=== PATIENT | female | born 1965 | race Two or more races ===

== ENCOUNTER 2018-07-11 19:04 | Inpatient (IN) | payer OTHER ==
[~2018-07-11] VITALS: Ht 167.6 cm; Wt 78.0 kg
[~2018-07-11 19:04] MED LIST changes: -ASPI81CH PO; -ATOR80 PO; -CARV3.125 PO; -CHOL10002 PO; -CLOP75 PO; -GAVILAX17 GM PO; -Synthroid75 MCG PO
[2018-07-11] MEDS ORDERED: CHOL10002 PO (19:13)
[2018-07-11] MEDS ORDERED: Synthroid75 MCG PO (19:13)
[2018-07-11 19:58] LABS: International Normalized Ratio 0.96; Prothrombin Time Results 10.2 Sec (9.7-11.5)
--- NOTE | 2018-07-11 22:45 | NUR ---
ARRIVAL TO THE FLOOR: PATIENT ARRIVED TO FLOOR VIA GURNEY AT 3. SHE TRANSFERED INDEPENDANT TO THE BED. IV HEPARIN DRIP INFUSING AT 17.4ML/HR, VERIFIED WITH ZEHRA LOPEZ. PT IS AOX3, COOPERATIVE AND PLEASANT. WILL HAVE HER TWO SONS SHOW UP LATER. STATES THAT HER PAIN STARTED YESTERDAY AROUND 11PM, WITH DISCOMFORT IN THE CHEST, SHE GOT UP AND WENT TO WORK THIS MORNING DURING THE DAY BOTH OF HER SHOULDERS BECAME HEAVY. SHE FINISHED OUT HER SHIFT AND THEN WENT TO THE URGENT CARE, HER TROPONIN THERE WAS 1.23, THEY SENT HER IMMEDIATLY OVER TO THE ER. IN ER HER TROPONIN WAS 1.4, NEGATIVE FOR PE. SHE DENIES ANY CHEST PAIN AT THIS TIME, JUST SLIGHT PRESSURE MID CHEST NO NUMBNESS OR TINGLING, STATES IT IS IMPROVING, NO INCREASE IN PAIN WITH MOVEMENT. GOT SETTLED IN THE ROOM, CALL LIGHT IN REACH.
[2018-07-12 01:41] LABS: Anion Gap 8 mmol/L (6-16); Blood Urea Nitrogen 12 mg/dL (8-24); CHOL/HDL RATIO 2.8; CO2, Blood 27 mmol/L (21-32); Calcium, Blood 8.7 mg/dL (8.5-10.1); Chloride, Blood 105 mmol/L (98-108); Cholesterol 197 mg/dL (50-200); Creatinine, Blood 0.55 mg/dL (0.40-1.00); Glomerular Filtration Rate >60 (60-); Glucose, Blood 89 mg/dL (70-99); HDL Cholesterol 71 mg/dL (>39); LDL/HDL RATIO 1.5; Low Density Lipoprotein Chol 108 mg/dL (0-110); Potassium, Blood 3.7 mmol/L (3.5-5.5); Sodium, Blood 140 mmol/L (136-145); Triglycerides 91 mg/dL (30-160); Very Low Density Lipoprot Chol 18 mg/dL (6-32)
--- NOTE | 2018-07-12 02:46 | NUR ---
CRITICAL LAB: CRITICAL TROPONIN LEVEL OF 3.04 RECEIVED AT 0215. CALLED TELEMETRY THEY SHOWED SINIUS RHYTHEM OF 60'S OCCATIONAL BRADYCARDIA OF 57-60. BP 94/64, HR 69, SATS 94%, TEMP 98.2, 12 RESP. PATIENT DENIED ANY CHEST PAIN, DISCOMFORT, PRESSURE, SOB OR ANY OTHER SYMPTOMS. INFORMED CUSTOM WOOD STAIR BUILDER, ATTEMPTED SEVERAL CALLS TO MD BUT PHONE BUSY. HAD CUSTOM WOOD STAIR BUILDER CALL SUPERVISORY WHICH WAS ABLE TO GET AHOLD OF MD. CALLED MD INFORMED OF CRITICAL LEVEL. HE STATES HE WILL HAVE A REPEAT TROPONIN FOR 7 AM. NO OTHER ORDERS TO NOTE. INFORMED CUSTOM WOOD STAIR BUILDER.
--- NOTE | 2018-07-12 05:35 | NUR ---
SHIFT SUMMARY: PATIENT ARRIVED TO FLOOR AROUND 2132 VIA GURNEY, SHE TRANSFERRED SELF INDEPENDANT TO BED. CHANGED INTO [employer]. DENIED HAVING ANY PAIN OTHER THEN PRESSURE IN CHEST, THAT WAS IMPROVING WITH HEPARIN DRIP INFUSING INTO 18G RIGHT AC. INFUSION WAS GOOD THROUGHOUT THE NIGHT. tROPONIN ON ARRIVAL WAS 1.4. AROUND 214 RECEIVED CRITICAL TROPONIN LEVEL OF 3.04, PATIENT ASYMPTOMATIC, VS WNL WITH A SLIGHT DROP IN BP. HAD COREG IN ER PRIOR TO ADMIT TO FLOOR. TELEMETRY REPORTED SR IN 60'S. NOTIFIED AND ONLY A REPEAT TROPONIN WAS ORDERED. MONITORED PATIENT THROUGHOUT THE NIGHT WITH NO ACUTE CHANGES, REMAINED SLEEPING OFF AND ON WITH NO FURTHER CHEST PAIN. HER TWO BOYS ARE IN ROOM WITH HER SLEEPING. WILL REPORT TO ONCOMING SHIFT.
--- NOTE | 2018-07-12 11:45 | NUR ---
Spiritual care visit conducted. Patient is lying in bed and alert. Patient shares about her current condition and about her upcoming prodedure. Patient openly speaks of her family (6 children), her shannon (attends [employer]) and her many changes in location over the past several years. Patient also admits that she is quite nerveous about her surgery and about what the surgeon may find. I listen empathically, provide emotional support and provide pre-surgery prayer. Patient responds well and shows signs of reduced stress
--- NOTE | 2018-07-12 11:55 | NUR ---
PATIENT COMPLAINING OF A LEFT SIDE SHOOTING BACK PAIN. MAY BE RELATED TO BED. UP WALKING MALDONADO STATES THE PAIN HAS GONE AWAY. NO CHANGED TO TELE MONITOR. WILL CONTINUE TO MONITOR.
--- NOTE | 2018-07-12 11:58 | NUR ---
Advance Directive Education conducted. Patient is very interested in advance directive planning. We talk at length about it. I give patient the Advance Directive booklet and go through it section by section and discuss the process of filing the forms. Patient demonstrates a clear understanding and states that she will go over the information with her son and her sister.
--- NOTE | 2018-07-12 17:15 | NUR ---
ASSUMED CARE PT CAME FROM HEART CENTER. VS STABLE. O2 SATS REMAIN ABOVE 90% ON RA. PT DENIES ANY CP. HR 50-60'S SINUS. RIGHT RADIAL SITE FREE FROM ANY BRUISING, HEMATOMA, OR BLEEDING. RIGHT GROIN SITE WITH ANGIOSEAL IN PLACE FREE FROM BLEEDING, HEMATOMA, OR BRUISING. PT LYING FLAT. WILL CONTINUE TO MONITOR CLOSELY.
--- NOTE | 2018-07-12 19:00 | NUR ---
REPORT GIVEN TO SERVICE CONSULTANT RN.
[2018-07-13 03:50] LABS: Hemoglobin 13.3 g/dL (11.5-16.0); Mean Corpuscular HGB Conc 33.3 g/dL (31.5-36.5); Mean Corpuscular Volume 90 fL (80-100); Mean Platelet Volume 8.6 fL (9.1-12.4); Platelet Count 261 K/mm3 (150-400); RDW Coefficient Variation 12.3 % (11.7-14.2); RDW Standard Deviation 39.9 fL (35.1-46.3); Red Blood Cell Count 4.44 M/mm3 (3.80-5.20); White Blood Cell Count 6.64 K/mm3 (4.00-11.30)
[2018-07-13 04:07] LABS: Albumin, Blood 3.2 g/dL (3.4-5.0); Anion Gap 7 mmol/L (6-16); Blood Urea Nitrogen 15 mg/dL (8-24); Bun/Creatinine Ratio 25.7 (12.0-20.0); CO2, Blood 26 mmol/L (21-32); Calcium, Blood 8.5 mg/dL (8.5-10.1); Chloride, Blood 106 mmol/L (98-108); Creatinine, Blood 0.58 mg/dL (0.40-1.00); Glomerular Filtration Rate >60 (60-); Glucose, Blood 85 mg/dL (70-99); Phosphorus, Blood 3.9 mg/dL (2.5-4.9); Sodium, Blood 139 mmol/L (136-145)
--- NOTE | 2018-07-13 05:47 | NUR ---
Shift Summary No changes this shift. VSS. No events on tele. Pt without complaints of chest pain or pressure. pt denies shortness of breath. R radial free of hematoma, swelling, bleed, tenderness. Site fully deflated and TR band removed. Tegaderm in place and pt remains with armboard. R Groin soft, non tender, no hematoma or bleed present. Pt able to ambulate independantly to bathroom. Pt calls appropriately, remains alert and oriented, call light in reach. Will continue to monitor and update as needed.
[2018-07-13] MEDS ORDERED: CARV3.125 PO (11:09)
[2018-07-13] MEDS ORDERED: ATOR80 PO (11:09)
[2018-07-13] MEDS ORDERED: ASPI81CH PO (11:09)
[2018-07-13] MEDS ORDERED: GAVILAX17 GM PO (11:10)
[2018-07-13] MEDS ORDERED: CLOP75 PO (11:10)
--- NOTE | 2018-07-13 11:53 | NUR ---
Patient is lying in bed and alert. Patient states that she is going home today. We discuss her resources and coping skills. Patient has a great family support network and leans heavily on her shannon. I listened empathically and provided prayer. Patient responded well and voiced appreciation for the visit.
--- NOTE | 2018-07-13 13:38 | NUR ---
PT ALERT AND ORIENTED. VS STABLE. FEMORAL SITE AND RADIAL SITE BOTH FREE FROM ANY HEMATOMA, BRUISING, OR BLEEDING. DISCHARGE INSTRUCTIONS PROVIDED. IV REMOVED. STENT INFORMATION AND RESTRCITIONS GIVEN TO PT. PT TAKEN OUT BY WHEELCHAIR WITH FAMILY.
== END 2018-07-13 13:19 | disposition home or self-care (01) | DRG 247 ==
LOC: ER 19:04 → MEDS 20:55 → PCU 07-12 16:45
PROVIDERS: Emergency Medicine; Internal Medicine; ADMIT Hospitalist
PROC: 4A023N7 Measurement of Cardiac Sampling and Pressure, Left Heart, Percutaneous Approach (ICD-10-PCS; principal; 2018-07-12)
PROC: 027034Z Dilation of Coronary Artery, One Artery with Drug-eluting Intraluminal Device, Percutaneous Approach (ICD-10-PCS; 2018-07-12)
PROC: B201YZZ Plain Radiography of Multiple Coronary Arteries using Other Contrast (ICD-10-PCS; 2018-07-12)
DX: I21.4 Non-ST elevation (NSTEMI) myocardial infarction (principal); I10 Essential (primary) hypertension; E03.9 Hypothyroidism, unspecified; E66.3 Overweight; Z68.28 Body mass index [BMI] 28.0-28.9, adult
CPT/HCPCS: 36415; 71260; 76937; 80048; 80053; 80061; 80069; 83036; 84484; 85025; 85027; 85347; 85379; 85610; 85730; 93005; 93010; 93306; 93458; 93926; 96365-59; 99152; 99153; 99283-25; 99285-25; A9270; C1725; C1760; C1769; C1874; C1887; C1894; C9600; J1644; J2250; J3010; J3246; J7030; Q9967

== ENCOUNTER → 2018-07-11 | Outpatient (CLI) | payer OTHER ==
[~2018-07-11] MED LIST: ASPI81CH PO; ASPI81EC PO; ATEN25 PO; ATOR80 PO; BUSP5 PO; CARV3.125 PO; CHOL10002 PO; CLOP75 PO; GAVILAX17 GM PO; HYDCHL25 PO; LEVSOD25 PO; LEVSOD75 PO; LISI5 PO; Mucinex600 MG PO; PROM25 PO; Pseudoephedrine30 MG PO; Synthroid75 MCG PO
[2018-07-11 18:30] LABS: BASOPHILS ABSOLUTE AUTO 0.02 K/mm3 (0.00-0.23); BASOPHILS PERCENT AUTO 0 % (0-2); EOSINOPHILS ABSOLUTE AUTO 0.06 K/mm3 (0.00-0.68); EOSINOPHILS PERCENT AUTO 1 % (0-6); Hematocrit 39.6 % (33.0-51.0); Hemoglobin 13.7 g/dL (11.5-16.0); IMMATURE GRAN ABSOLUTE AUTO 0.02 K/mm3 (0.00-0.10); IMMATURE GRAN PERCENT AUTO 0 % (0-1); LYMPHOCYTES ABSOLUTE AUTO 2.14 K/mm3 (0.84-5.20); LYMPHOCYTES PERCENT AUTO 29 % (21-46); MONOCYTES PERCENT AUTO 5 % (4-13); Mean Corpuscular HGB 30.6 pg (26.0-34.0); Mean Corpuscular HGB Conc 34.6 g/dL (31.5-36.5); Mean Corpuscular Volume 88 fL (80-100); Mean Platelet Volume 8.7 fL (9.1-12.4); NEUTROPHILS PERCENT AUTO 64 % (41-73); Platelet Count 301 K/mm3 (150-400); RDW Coefficient Variation 12.4 % (11.7-14.2); RDW Standard Deviation 39.4 fL (35.1-46.3); Red Blood Cell Count 4.48 M/mm3 (3.80-5.20); White Blood Cell Count 7.34 K/mm3 (4.00-11.30)
[2018-07-11 18:42] LABS: Alanine Aminotransfer (ALT/SGP 26 U/L (12-78); Albumin, Blood 3.8 g/dL (3.4-5.0); Alk Phos 74 U/L (40-126); Anion Gap 9 mmol/L (6-16); Aspartate Aminotrans (AST/SGOT 21 U/L (12-37); Bilirubin, Total 0.3 mg/dL (0.1-1.0); Blood Urea Nitrogen 16 mg/dL (8-24); Bun/Creatinine Ratio 23.9 (12.0-20.0); CO2, Blood 27 mmol/L (21-32); Calcium, Blood 9.3 mg/dL (8.5-10.1); Chloride, Blood 99 mmol/L (98-108); Creatinine, Blood 0.67 mg/dL (0.40-1.00); Globulin, Blood 3.9 g/dL (2.2-4.0); Glomerular Filtration Rate >60 (60-); Glucose, Blood 88 mg/dL (70-99); Potassium, Blood 3.8 mmol/L (3.5-5.5); Sodium, Blood 135 mmol/L (136-145); Total Protein, Blood 7.7 g/dL (6.4-8.2)
[2018-07-11 18:45] LABS: Troponin I 1.233 ng/mL (0.000-0.040)
== END | disposition home or self-care (01) ==
LOC: LAB SHORT 18:24 → LAB EV 18:24
PROVIDERS: Physician Assistant Medical
DX: R07.9 Chest pain, unspecified (principal)
CPT/HCPCS: 80053; 84484; 85025; 85379

== ENCOUNTER 2018-07-26 13:11 | Emergency (ER) | payer OTHER ==
[~2018-07-26] VITALS: Ht 167.6 cm; Wt 78.5 kg
[~2018-07-26 13:11] MED LIST changes: +ASPI81CH PO; +ATOR80 PO; +CARV3.125 PO; +CHOL10002 PO; +CLOP75 PO; +GAVILAX17 GM PO; +Synthroid75 MCG PO
[2018-07-26 13:55] LABS: BASOPHILS ABSOLUTE AUTO 0.04 K/mm3 (0.00-0.23); BASOPHILS PERCENT AUTO 1 % (0-2); EOSINOPHILS ABSOLUTE AUTO 0.11 K/mm3 (0.00-0.68); EOSINOPHILS PERCENT AUTO 2 % (0-6); Hematocrit 40.4 % (33.0-51.0); Hemoglobin 13.6 g/dL (11.5-16.0); IMMATURE GRAN ABSOLUTE AUTO 0.01 K/mm3 (0.00-0.10); IMMATURE GRAN PERCENT AUTO 0 % (0-1); LYMPHOCYTES ABSOLUTE AUTO 1.61 K/mm3 (0.84-5.20); LYMPHOCYTES PERCENT AUTO 33 % (21-46); MONOCYTES ABSOLUTE AUTO 0.38 K/mm3 (0.16-1.47); MONOCYTES PERCENT AUTO 8 % (4-13); Mean Corpuscular HGB 30.5 pg (26.0-34.0); Mean Corpuscular HGB Conc 33.7 g/dL (31.5-36.5); Mean Corpuscular Volume 91 fL (80-100); NEUTROPHILS ABSOLUTE AUTO 2.71 K/mm3 (1.96-9.15); NEUTROPHILS PERCENT AUTO 56 % (41-73); Platelet Count 316 K/mm3 (150-400); RDW Coefficient Variation 12.2 % (11.7-14.2); RDW Standard Deviation 40.4 fL (35.1-46.3); Red Blood Cell Count 4.46 M/mm3 (3.80-5.20); White Blood Cell Count 4.86 K/mm3 (4.00-11.30)
[2018-07-26 14:17] LABS: Alanine Aminotransfer (ALT/SGP 27 U/L (12-78); Albumin, Blood 3.9 g/dL (3.4-5.0); Albumin/Globulin Ratio 0.9 (0.8-1.8); Alk Phos 87 U/L (50-136); Anion Gap 5 mmol/L (6-16); Aspartate Aminotrans (AST/SGOT 19 U/L (12-37); Bilirubin, Total 0.8 mg/dL (0.1-1.0); Blood Urea Nitrogen 14 mg/dL (8-24); Bun/Creatinine Ratio 23.3 (12.0-20.0); CO2, Blood 27 mmol/L (21-32); Calcium, Blood 8.9 mg/dL (8.5-10.1); Chloride, Blood 107 mmol/L (98-108); Globulin, Blood 4.2 g/dL (2.2-4.0); Glomerular Filtration Rate >60 (60-); Glucose, Blood 88 mg/dL (70-99); Potassium, Blood 4.4 mmol/L (3.5-5.5); Sodium, Blood 139 mmol/L (136-145); Total Protein, Blood 8.1 g/dL (6.4-8.2); Troponin I <0.015 ng/mL (0.000-0.040)
== END 2018-07-26 15:34 | disposition home or self-care (01) ==
LOC: ER 13:11
PROVIDERS: Emergency Medicine
DX: R07.9 Chest pain, unspecified (principal); I10 Essential (primary) hypertension; E03.9 Hypothyroidism, unspecified; I25.10 Atherosclerotic heart disease of native coronary artery without angina pectoris; E66.9 Obesity, unspecified; Z95.2 Presence of prosthetic heart valve; Z87.891 Personal history of nicotine dependence; Z79.82 Long term (current) use of aspirin; Z79.899 Other long term (current) drug therapy
CPT/HCPCS: 36415; 71046; 80053; 83690; 84484; 85025; 93005; 93010; 99285-25

== ENCOUNTER 2018-08-07 21:27 | Observation (INO) | payer OTHER ==
[~2018-08-07] VITALS: Ht 167.6 cm; Wt 78.6 kg
[2018-08-07 22:39] LABS: BASOPHILS ABSOLUTE AUTO 0.03 K/mm3 (0.00-0.23); BASOPHILS PERCENT AUTO 0 % (0-2); EOSINOPHILS ABSOLUTE AUTO 0.15 K/mm3 (0.00-0.68); EOSINOPHILS PERCENT AUTO 2 % (0-6); Hematocrit 34.7 % (33.0-51.0); Hemoglobin 11.7 g/dL (11.5-16.0); IMMATURE GRAN ABSOLUTE AUTO 0.02 K/mm3 (0.00-0.10); IMMATURE GRAN PERCENT AUTO 0 % (0-1); LYMPHOCYTES ABSOLUTE AUTO 1.39 K/mm3 (0.84-5.20); LYMPHOCYTES PERCENT AUTO 16 % (21-46); MONOCYTES ABSOLUTE AUTO 0.73 K/mm3 (0.16-1.47); MONOCYTES PERCENT AUTO 8 % (4-13); Mean Corpuscular HGB 30.9 pg (26.0-34.0); Mean Corpuscular HGB Conc 33.7 g/dL (31.5-36.5); Mean Corpuscular Volume 92 fL (80-100); Mean Platelet Volume 8.8 fL (9.1-12.4); NEUTROPHILS ABSOLUTE AUTO 6.42 K/mm3 (1.96-9.15); NEUTROPHILS PERCENT AUTO 74 % (41-73); Platelet Count 238 K/mm3 (150-400); RDW Coefficient Variation 12.2 % (11.7-14.2); RDW Standard Deviation 40.8 fL (35.1-46.3); Red Blood Cell Count 3.79 M/mm3 (3.80-5.20); White Blood Cell Count 8.74 K/mm3 (4.00-11.30)
[2018-08-07 22:55] LABS: Anion Gap 6 mmol/L (6-16); Blood Urea Nitrogen 17 mg/dL (8-24); Bun/Creatinine Ratio 18.4 (12.0-20.0); CO2, Blood 28 mmol/L (21-32); Calcium, Blood 8.2 mg/dL (8.5-10.1); Chloride, Blood 106 mmol/L (98-108); Creatinine, Blood 0.92 mg/dL (0.40-1.00); Glomerular Filtration Rate >60 (60-); Glucose, Blood 106 mg/dL (70-99); Potassium, Blood 3.5 mmol/L (3.5-5.5); Sodium, Blood 140 mmol/L (136-145)
--- NOTE | 2018-08-08 02:27 | NUR ---
PT ARRIVES TO ROOM ICU 8 FROM EMERGENCY DEPARTMENT AT 0040 UNDER PCU STATUS. PT ABLE TO TRANSFER HERSELF FROM [place] TO BED. ABLE TO URINATE Q S WITHOUT ISSUES. IS A GOOD HISTORIAN. CLAIMS BEFORE SHE HAD THE EDEMA FROM LIPS, SHE DID EXPERIENCE SOME ITCHING TO HER HANDS EARLIER IN DAY. PT STATES THAT SHE NOTICES THAT SHE IS HAVING SLIGHTLY LESS EDEMA IN HER LIPS. WILL REVIEW CHART AND PLAN OF CARE FOR THIS PT.
--- NOTE | 2018-08-08 06:40 | NUR ---
PT HAS BEEN ABLE TO REST THIS NIGHT. HAS NO COPLAINTS OF DYSPNEA. NO COMPLAINTS OF PAIN. NOTED THE FACIAL EDEMA HAS IMPROVED. WILL CONTINUE TO MONITOR PT, AND WILL REPORT OFF TO ONCOMING RN.
[2018-08-08] MEDS ORDERED: BENADRYL25 MG PO (11:35)
[2018-08-08] MEDS ORDERED: FAMO20 PO (11:36)
[2018-08-08] MEDS ORDERED: DELTASONE20 MG PO (11:37)
--- NOTE | 2018-08-08 12:15 | NUR ---
[facility] CARE CLINICAL VISIT. Introduced myself to pt and allowed her to express her needs. She was slightly distressed that she had lost her Advanced directive form that she was given during her recent hospital stay for a heart attack. I obtained one for her and her family members to take home. I saw with her and reviewed all pages/components of the AD form, naming a surrogate decision maker, witnessing, and the four conditions listed in the AD. Time spent discussing pt's identified needs and wishes. She wants to be a full code, as she is currently. She wants to be an organ and tissue donator if she were to . I inquired how her recovery from [place] was going. She works director multimedia. I discussed Cardiac Rehab with her and she is very interested in this. She believes her Dr has already ordered CR. I gave her their number and she called while I was there to schedule her intake appointment them with next week. Time spent encouraging her and explaining cardiac rehab and also discussing heart healthy lifestyle and diet. I encouraged her to take advantage of the free dietary consult with a dietitian that is offered as part of her Cardiac Rehab session. Pt very appreciative for the visit and glad to be going home today. I gave her our number to call if she needed further help with her AD and asked that she bring us a copy of the completed one so we could include it in her medical records. of h
--- NOTE | 2018-08-08 12:15 | NUR ---
DISCHARGE: PT WALKED OUT OF THE UNIT AT THIS TIME WITH THIS RN. REFERED TO ADMITTING. NO S/S OF DISTRESS NOTED.
== END 2018-08-08 12:15 | disposition home or self-care (01) ==
LOC: ER 21:27 → ICUW 21:28 → ER 08-08 00:14 → ICUW 08-08 00:14 → ICUE 08-08 00:34
PROVIDERS: Emergency Medicine; ADMIT Hospitalist
DX: T78.3XXA Angioneurotic edema, initial encounter (principal); I10 Essential (primary) hypertension; I25.10 Atherosclerotic heart disease of native coronary artery without angina pectoris; E03.9 Hypothyroidism, unspecified; E66.9 Obesity, unspecified; Z87.891 Personal history of nicotine dependence; Z88.1 Allergy status to other antibiotic agents; Z79.899 Other long term (current) drug therapy; Z79.82 Long term (current) use of aspirin; Z79.01 Long term (current) use of anticoagulants
CPT/HCPCS: 36415; 80048; 85025; 96372; 96374; 96375; 96376; 99285-25; G0378; J1100; J1200; J1650

== ENCOUNTER → 2018-09-20 | Outpatient (CLI) | payer OTHER ==
[~2018-09-20] MED LIST changes: +BENADRYL25 MG PO; +DELTASONE20 MG PO; +FAMO20 PO
== END | disposition home or self-care (01) ==
LOC: LAB SHORT 19:05 → LAB EV 19:05
DX: R31.9 Hematuria, unspecified (principal)
CPT/HCPCS: 87086

== ENCOUNTER → 2018-09-28 | Outpatient (CLI) | payer OTHER ==
[2018-09-28 19:52] LABS: BASOPHILS ABSOLUTE AUTO 0.03 K/mm3 (0.00-0.23); BASOPHILS PERCENT AUTO 1 % (0-2); EOSINOPHILS ABSOLUTE AUTO 0.14 K/mm3 (0.00-0.68); EOSINOPHILS PERCENT AUTO 2 % (0-6); Hematocrit 41.4 % (33.0-51.0); Hemoglobin 13.7 g/dL (11.5-16.0); IMMATURE GRAN ABSOLUTE AUTO 0.01 K/mm3 (0.00-0.10); IMMATURE GRAN PERCENT AUTO 0 % (0-1); LYMPHOCYTES ABSOLUTE AUTO 1.82 K/mm3 (0.84-5.20); LYMPHOCYTES PERCENT AUTO 31 % (21-46); MONOCYTES ABSOLUTE AUTO 0.35 K/mm3 (0.16-1.47); MONOCYTES PERCENT AUTO 6 % (4-13); Mean Corpuscular HGB 29.6 pg (26.0-34.0); Mean Corpuscular HGB Conc 33.1 g/dL (31.5-36.5); Mean Corpuscular Volume 89 fL (80-100); Mean Platelet Volume 9.4 fL (9.1-12.4); NEUTROPHILS ABSOLUTE AUTO 3.49 K/mm3 (1.96-9.15); NEUTROPHILS PERCENT AUTO 60 % (41-73); Platelet Count 292 K/mm3 (150-400); RDW Coefficient Variation 11.9 % (11.7-14.2); RDW Standard Deviation 39.3 fL (35.1-46.3); Red Blood Cell Count 4.63 M/mm3 (3.80-5.20); White Blood Cell Count 5.84 K/mm3 (4.00-11.30)
[2018-09-28 20:21] LABS: Alanine Aminotransfer (ALT/SGP 39 U/L (12-78); Albumin, Blood 3.9 g/dL (3.4-5.0); Albumin/Globulin Ratio 1.1 (0.8-1.8); Alk Phos 92 U/L (50-136); Anion Gap 5 mmol/L (6-16); Aspartate Aminotrans (AST/SGOT 17 U/L (12-37); Bilirubin, Total 0.3 mg/dL (0.1-1.0); Blood Urea Nitrogen 19 mg/dL (8-24); Bun/Creatinine Ratio 28.1 (12.0-20.0); CO2, Blood 28 mmol/L (21-32); Chloride, Blood 106 mmol/L (98-108); Creatinine, Blood 0.68 mg/dL (0.40-1.00); Globulin, Blood 3.7 g/dL (2.2-4.0); Glomerular Filtration Rate >60 (60-); Glucose, Blood 102 mg/dL (70-99); Potassium, Blood 3.8 mmol/L (3.5-5.5); Sodium, Blood 139 mmol/L (136-145); Total Protein, Blood 7.6 g/dL (6.4-8.2)
== END ==
LOC: LAB 19:25 → LAB SHORT 19:25
PROVIDERS: Family Medicine
DX: R53.83 Other fatigue (principal)
CPT/HCPCS: 80053; 82306; 83036; 84443; 85025

== ENCOUNTER → 2018-12-08 | Outpatient (CLI) | payer OTHER | END | disposition home or self-care (01) | LOC: LAB SHORT 12:16 → LAB EV 12:16 | DX: N39.0 Urinary tract infection, site not specified (principal) | CPT/HCPCS: 87077; 87086; 87186 ==

== ENCOUNTER 2018-12-23 17:01 | Emergency (ER) | payer OTHER ==
[~2018-12-23] VITALS: Ht 165.1 cm; Wt 82.5 kg
[2018-12-23 17:33] LABS: BASOPHILS ABSOLUTE AUTO 0.04 K/mm3 (0.00-0.23); BASOPHILS PERCENT AUTO 1 % (0-2); EOSINOPHILS ABSOLUTE AUTO 0.11 K/mm3 (0.00-0.68); EOSINOPHILS PERCENT AUTO 2 % (0-6); Hematocrit 41.2 % (33.0-51.0); Hemoglobin 13.8 g/dL (11.5-16.0); IMMATURE GRAN ABSOLUTE AUTO 0.01 K/mm3 (0.00-0.10); IMMATURE GRAN PERCENT AUTO 0 % (0-1); LYMPHOCYTES ABSOLUTE AUTO 1.91 K/mm3 (0.84-5.20); LYMPHOCYTES PERCENT AUTO 32 % (21-46); MONOCYTES ABSOLUTE AUTO 0.36 K/mm3 (0.16-1.47); MONOCYTES PERCENT AUTO 6 % (4-13); Mean Corpuscular HGB 29.4 pg (26.0-34.0); Mean Corpuscular HGB Conc 33.5 g/dL (31.5-36.5); Mean Corpuscular Volume 88 fL (80-100); Mean Platelet Volume 9.5 fL (9.1-12.4); NEUTROPHILS ABSOLUTE AUTO 3.55 K/mm3 (1.96-9.15); NEUTROPHILS PERCENT AUTO 59 % (41-73); Platelet Count 251 K/mm3 (150-400); RDW Coefficient Variation 12.4 % (11.7-14.2); RDW Standard Deviation 39.6 fL (35.1-46.3); White Blood Cell Count 5.98 K/mm3 (4.00-11.30)
[2018-12-23 17:53] LABS: Troponin I <0.015 ng/mL (0.000-0.040)
[2018-12-23 17:54] LABS: Alanine Aminotransfer (ALT/SGP 50 U/L (12-78); Albumin, Blood 3.7 g/dL (3.4-5.0); Alk Phos 81 U/L (50-136); Anion Gap 7 mmol/L (6-16); Aspartate Aminotrans (AST/SGOT 23 U/L (12-37); Bilirubin, Total 0.4 mg/dL (0.1-1.0); Blood Urea Nitrogen 21 mg/dL (8-24); Bun/Creatinine Ratio 15.8 (12.0-20.0); CO2, Blood 26 mmol/L (21-32); Calcium, Blood 8.7 mg/dL (8.5-10.1); Chloride, Blood 106 mmol/L (98-108); Creatinine, Blood 1.33 mg/dL (0.40-1.00); Globulin, Blood 3.8 g/dL (2.2-4.0); Glomerular Filtration Rate 45 (60-); Glucose, Blood 98 mg/dL (70-99); Potassium, Blood 3.9 mmol/L (3.5-5.5); Sodium, Blood 139 mmol/L (136-145); Total Protein, Blood 7.5 g/dL (6.4-8.2)
[2018-12-23] MEDS ORDERED: HYDR1TAB94 PO (19:19)
== END 2018-12-23 19:51 | disposition home or self-care (01) ==
LOC: ER 17:01
PROVIDERS: Internal Medicine
DX: R07.89 Other chest pain (principal); I10 Essential (primary) hypertension; E03.9 Hypothyroidism, unspecified; I25.2 Old myocardial infarction; Z87.891 Personal history of nicotine dependence; Z88.1 Allergy status to other antibiotic agents; Z79.899 Other long term (current) drug therapy; Z79.82 Long term (current) use of aspirin; Z79.02 Long term (current) use of antithrombotics/antiplatelets
CPT/HCPCS: 36415; 71046; 80053; 84484; 85025; 93005; 93010; 99285-25; A9270-GY

== ENCOUNTER 2019-10-25 08:58 | Day surgery (SDC) | payer OTHER ==
[~2019-10-25] VITALS: Ht 162.6 cm; Wt 88.0 kg
[~2019-10-25 08:58] MED LIST changes: -ASPI81CH PO; +Aspir 8181 MG PO; -CARV3.125 PO; -CHOL10002 PO; +ERGO50000 PO; +HYDR1TAB94 PO; +ISOSORBIDE MONO60 MG PO; +METO25ER PO; +NITR.4SL SL; -Synthroid75 MCG PO; +VITAMIN D325 MC3 PO
--- NOTE | 2019-10-25 13:15 | NUR ---
TR BAND 2CC'S AIR REMOVED FROM BAND. AFTER 2ND 2CC'S REMOVED, SITE BEGAN TO BLEED. 4CC'S OF AIR REPLACED IN TR BAND. WILL CONTINUE TO MONITOR. PT DENIED ANY PAIN .
--- NOTE | 2019-10-25 14:30 | NUR ---
DR. GASTELUM IN TO SEE PT DR. GASTELUM IN TO DISCUSS RESULTS WITH PT AND WRITE A WORK RELEASE NOTE.
--- NOTE | 2019-10-25 15:03 | NUR ---
DISCHARGE PT REMAINED A&OX3 AND DENIED ANY PAIN DURING RECOVERY. R RADIAL SITE-TR BAND REMOVED, CLOTH DOT AND WHITE BOARD IN PLACE-CDI, NO HEMATOMA NOTED. IV DC'S WITH CANULA IN TACT. DISCHARGE PAPERWORK GONE OVER WITH PT AND SON. PT AND SON VERBALLY STATED THE UNDERSTANDING OF THE DISCHARGE EDUCATION AND DENIED ANY QUESTIONS AT THIS TIME. PT WHEELED OUT BY THIS NURSE.
== END 2019-10-25 15:00 | disposition home or self-care (01) ==
LOC: MHTC 08:58
PROC: B201YZZ Plain Radiography of Multiple Coronary Arteries using Other Contrast (ICD-10-PCS; principal; 2019-10-25)
PROC: 4A023N7 Measurement of Cardiac Sampling and Pressure, Left Heart, Percutaneous Approach (ICD-10-PCS; principal; 2019-10-25)
DX: I25.119 Atherosclerotic heart disease of native coronary artery with unspecified angina pectoris (principal); I25.2 Old myocardial infarction; E78.00 Pure hypercholesterolemia, unspecified; E78.5 Hyperlipidemia, unspecified; I08.1 Rheumatic disorders of both mitral and tricuspid valves; I11.9 Hypertensive heart disease without heart failure; Z79.82 Long term (current) use of aspirin; Z79.02 Long term (current) use of antithrombotics/antiplatelets; Z79.899 Other long term (current) drug therapy; Z95.5 Presence of coronary angioplasty implant and graft; Z88.1 Allergy status to other antibiotic agents; E66.9 Obesity, unspecified; Z87.891 Personal history of nicotine dependence; J45.909 Unspecified asthma, uncomplicated; Z68.33 Body mass index [BMI] 33.0-33.9, adult
CPT/HCPCS: 93454; 99152; C1769; C1894; J1644; J2250; J3010; J7030; J7050; Q9967

== ENCOUNTER 2020-07-04 18:43 | Observation (INO) | payer OTHER ==
[~2020-07-04] VITALS: Ht 167.6 cm; Wt 87.6 kg
[2020-07-04 19:30] LABS: BASOPHILS ABSOLUTE AUTO 0.03 K/mm3 (0.00-0.23); BASOPHILS PERCENT AUTO 1 % (0-2); EOSINOPHILS ABSOLUTE AUTO 0.11 K/mm3 (0.00-0.68); EOSINOPHILS PERCENT AUTO 2 % (0-6); Hematocrit 41.8 % (33.0-51.0); IMMATURE GRAN ABSOLUTE AUTO 0.01 K/mm3 (0.00-0.10); IMMATURE GRAN PERCENT AUTO 0 % (0-1); LYMPHOCYTES ABSOLUTE AUTO 1.94 K/mm3 (0.84-5.20); LYMPHOCYTES PERCENT AUTO 31 % (21-46); MONOCYTES ABSOLUTE AUTO 0.36 K/mm3 (0.16-1.47); MONOCYTES PERCENT AUTO 6 % (4-13); Mean Corpuscular HGB 29.9 pg (26.0-34.0); Mean Corpuscular HGB Conc 33.5 g/dL (31.5-36.5); Mean Corpuscular Volume 89 fL (80-100); Mean Platelet Volume 9.2 fL (9.1-12.4); NEUTROPHILS ABSOLUTE AUTO 3.76 K/mm3 (1.96-9.15); NEUTROPHILS PERCENT AUTO 61 % (41-73); Platelet Count 257 K/mm3 (150-400); RDW Coefficient Variation 12.3 % (11.7-14.2); RDW Standard Deviation 40.2 fL (35.1-46.3); Red Blood Cell Count 4.69 M/mm3 (3.80-5.20); White Blood Cell Count 6.21 K/mm3 (4.00-11.30)
[2020-07-04 19:51] LABS: Alanine Aminotransfer (ALT/SGP 41 U/L (12-78); Albumin, Blood 4.1 g/dL (3.4-5.0); Alk Phos 74 U/L (50-136); Anion Gap 7 mmol/L (6-16); Aspartate Aminotrans (AST/SGOT 25 U/L (12-37); Bilirubin, Total 0.4 mg/dL (0.1-1.0); Blood Urea Nitrogen 19 mg/dL (8-24); Bun/Creatinine Ratio 27.1 (12.0-20.0); CO2, Blood 26 mmol/L (21-32); Calcium, Blood 9.7 mg/dL (8.5-10.1); Chloride, Blood 106 mmol/L (98-108); Globulin, Blood 4.2 g/dL (2.2-4.0); Glomerular Filtration Rate >60 (60-); Glucose, Blood 91 mg/dL (70-99); Potassium, Blood 3.8 mmol/L (3.5-5.5); Sodium, Blood 139 mmol/L (136-145); Total Protein, Blood 8.3 g/dL (6.4-8.2)
[2020-07-04 20:00] LABS: International Normalized Ratio 0.99; Prothrombin Time Results 10.7 Sec (9.7-11.5)
[2020-07-05 05:10] LABS: CHOL/HDL RATIO 2.2; Cholesterol 128 mg/dL (50-200); HDL Cholesterol 57 mg/dL (>39); Low Density Lipoprotein Chol 57 mg/dL (0-110); Triglycerides 70 mg/dL (30-160); Very Low Density Lipoprot Chol 14 mg/dL (6-32)
--- NOTE | 2020-07-05 05:42 | NUR ---
PAPER NOVELTY MAKER SUMMARY PT NEW ADMIT, ARRIVED TO FLOOR AT 2340. A/O X4, NO SLURRED SPEECH OR FACIAL DROOPING. DENIES N/T. PUPILS ARE EQUAL AND REACTIVE TO LIGHT. PT DENIES FEELING WEAK ON ONE PARTICULAR SIDE. STEADY GAIT. INDEPENDENT IN ROOM. DENIES PAIN, DIZZINIES, SOB, NAUSEA. PT HAS BEEN RUNNING RUNNING SINUS EDWIN IN THE LOW 50'S PER SMALL BATTERY PLATE ASSEMBLER. PT ASYMPTOMATIC. RIVET FLUNKY AWARE. BILATERAL SCD'S IN PLACE. CALL LIGHT WITHIN REACH. WILL CONTINUE TO MONITOR.
--- NOTE | 2020-07-05 07:15 | NUR ---
ASSUMED CARE: PT RESTING IN BED, AWAKE AND TALKING TO STAFF. NO PHYSICAL DEFICITS NOTED AT THIS TIME. SINUS EDWIN IN 50S ON TELE.
--- NOTE | 2020-07-05 17:19 | NUR ---
SHIFT SUMMARY: ORDERED TESTS HAVE BEEN COMPLETED WITH ONLY ECHO RESULT PENDING. DR BOND AND DR LEYVA AWARE AND PLANNING TO DC PT TODAY. AWAITING DC ORDERS. PT REPORTS MILD HEADACHE THAT WAS RESOLVED WITH TYLENOL AND DIFFERS FROM HEADACHE YESTERDAY. DR LEYVA AWARE. NO ACUTE NEEDS OR CONCERNS AT THIS TIME.
--- NOTE | 2020-07-05 18:40 | NUR ---
DISCHARGE: PT GIVEN DISCHARGE INSTRUCTIONS AND HAS BEEN INFORMED TO CALL HER PCP ON MONDAY TO MAKE AN APPOINTMENT. IV DC'D WNL. ESCORTED OUT VIA WHEEL CHAIR BY HOSPITAL STAFF. DENIED FURTHER NEEDS OR CONCERNS.
== END 2020-07-05 18:15 | disposition home or self-care (01) ==
LOC: ER 18:43 → MEDS 18:44
PROVIDERS: Nurse Practitioner Acute Care; Physician Assistant; ADMIT Internal Medicine
DX: G45.9 Transient cerebral ischemic attack, unspecified (principal); I25.10 Atherosclerotic heart disease of native coronary artery without angina pectoris; E03.9 Hypothyroidism, unspecified; I10 Essential (primary) hypertension; F41.9 Anxiety disorder, unspecified; Z95.5 Presence of coronary angioplasty implant and graft; Z87.891 Personal history of nicotine dependence; Z79.82 Long term (current) use of aspirin
CPT/HCPCS: 36415; 70450; 70551; 80053; 80061; 83036; 85025; 85610; 93005; 93010; 93306; 93880; 99285-25; A9270; G0378; J7030

== ENCOUNTER 2020-07-08 12:04 | Emergency (ER) | payer OTHER ==
[~2020-07-08] VITALS: Ht 167.6 cm; Wt 86.2 kg
[2020-07-08 12:53] LABS: BASOPHILS ABSOLUTE AUTO 0.03 K/mm3 (0.00-0.23); BASOPHILS PERCENT AUTO 1 % (0-2); EOSINOPHILS ABSOLUTE AUTO 0.09 K/mm3 (0.00-0.68); EOSINOPHILS PERCENT AUTO 2 % (0-6); Hematocrit 41.1 % (33.0-51.0); Hemoglobin 13.8 g/dL (11.5-16.0); IMMATURE GRAN ABSOLUTE AUTO 0.01 K/mm3 (0.00-0.10); IMMATURE GRAN PERCENT AUTO 0 % (0-1); LYMPHOCYTES ABSOLUTE AUTO 1.29 K/mm3 (0.84-5.20); LYMPHOCYTES PERCENT AUTO 26 % (21-46); MONOCYTES ABSOLUTE AUTO 0.35 K/mm3 (0.16-1.47); MONOCYTES PERCENT AUTO 7 % (4-13); Mean Corpuscular HGB 29.3 pg (26.0-34.0); Mean Corpuscular HGB Conc 33.6 g/dL (31.5-36.5); Mean Corpuscular Volume 87 fL (80-100); NEUTROPHILS ABSOLUTE AUTO 3.21 K/mm3 (1.96-9.15); NEUTROPHILS PERCENT AUTO 65 % (41-73); Platelet Count 262 K/mm3 (150-400); RDW Coefficient Variation 12.2 % (11.7-14.2); RDW Standard Deviation 39.2 fL (35.1-46.3); Red Blood Cell Count 4.71 M/mm3 (3.80-5.20); White Blood Cell Count 4.98 K/mm3 (4.00-11.30)
[2020-07-08 13:00] LABS: Alanine Aminotransfer (ALT/SGP 41 U/L (12-78); Albumin, Blood 4.1 g/dL (3.4-5.0); Alk Phos 80 U/L (50-136); Anion Gap 4 mmol/L (6-16); Aspartate Aminotrans (AST/SGOT 24 U/L (12-37); Bilirubin, Total 0.7 mg/dL (0.1-1.0); Blood Urea Nitrogen 19 mg/dL (8-24); Bun/Creatinine Ratio 28.9 (12.0-20.0); CO2, Blood 28 mmol/L (21-32); Calcium, Blood 9.3 mg/dL (8.5-10.1); Chloride, Blood 106 mmol/L (98-108); Creatinine, Blood 0.66 mg/dL (0.40-1.00); Glomerular Filtration Rate >60 (60-); Glucose, Blood 95 mg/dL (70-99); Potassium, Blood 3.7 mmol/L (3.5-5.5); Sodium, Blood 138 mmol/L (136-145); Total Protein, Blood 8.1 g/dL (6.4-8.2)
== END 2020-07-08 13:22 | disposition home or self-care (01) ==
LOC: ER 12:04
PROVIDERS: Physician Assistant
DX: R20.0 Anesthesia of skin (principal); R42 Dizziness and giddiness; E03.9 Hypothyroidism, unspecified; I10 Essential (primary) hypertension; Z88.1 Allergy status to other antibiotic agents; Z88.8 Allergy status to other drugs, medicaments and biological substances; Z79.82 Long term (current) use of aspirin; Z79.899 Other long term (current) drug therapy; Z87.891 Personal history of nicotine dependence
CPT/HCPCS: 36415; 70450; 80053; 85025; 93005; 93010; 99284-25

== ENCOUNTER 2020-07-13 05:44 | Inpatient (IN) | payer OTHER ==
[~2020-07-13] VITALS: Ht 167.6 cm; Wt 86.7 kg
[2020-07-13 07:56] LABS: Alanine Aminotransfer (ALT/SGP 37 U/L (12-78); Albumin, Blood 4.1 g/dL (3.4-5.0); Albumin/Globulin Ratio 0.9 (0.8-1.8); Alk Phos 86 U/L (50-136); Anion Gap 4 mmol/L (6-16); Aspartate Aminotrans (AST/SGOT 24 U/L (12-37); Bilirubin, Total 0.7 mg/dL (0.1-1.0); Blood Urea Nitrogen 16 mg/dL (8-24); Bun/Creatinine Ratio 24.1 (12.0-20.0); CO2, Blood 27 mmol/L (21-32); Chloride, Blood 105 mmol/L (98-108); Creatinine, Blood 0.66 mg/dL (0.40-1.00); Globulin, Blood 4.7 g/dL (2.2-4.0); Glomerular Filtration Rate >60 (60-); Glucose, Blood 101 mg/dL (70-99); Potassium, Blood 3.7 mmol/L (3.5-5.5); Sodium, Blood 136 mmol/L (136-145); Total Protein, Blood 8.8 g/dL (6.4-8.2)
[2020-07-13 08:04] LABS: BASOPHILS ABSOLUTE AUTO 0.02 K/mm3 (0.00-0.23); BASOPHILS PERCENT AUTO 0 % (0-2); EOSINOPHILS ABSOLUTE AUTO 0.08 K/mm3 (0.00-0.68); EOSINOPHILS PERCENT AUTO 1 % (0-6); Hemoglobin 14.8 g/dL (11.5-16.0); IMMATURE GRAN ABSOLUTE AUTO 0.02 K/mm3 (0.00-0.10); IMMATURE GRAN PERCENT AUTO 0 % (0-1); LYMPHOCYTES ABSOLUTE AUTO 0.96 K/mm3 (0.84-5.20); LYMPHOCYTES PERCENT AUTO 8 % (21-46); MONOCYTES PERCENT AUTO 6 % (4-13); Mean Corpuscular HGB Conc 32.9 g/dL (31.5-36.5); Mean Corpuscular Volume 91 fL (80-100); Mean Platelet Volume 8.8 fL (9.1-12.4); NEUTROPHILS ABSOLUTE AUTO 10.02 K/mm3 (1.96-9.15); NEUTROPHILS PERCENT AUTO 85 % (41-73); Platelet Count 250 K/mm3 (150-400); RDW Coefficient Variation 12.6 % (11.7-14.2); RDW Standard Deviation 42.1 fL (35.1-46.3); Red Blood Cell Count 4.93 M/mm3 (3.80-5.20)
--- NOTE | 2020-07-13 19:30 | NUR ---
SHIFT SUMMARY PATIENT NEW ADMIT TO UNIT THIS SHIFT. ALERT, ORIENTED, AND INDEPENDENT IN THE ROOM. RIGHT UPPER QUADRANT ABD PAIN. MEDICATED WITH FENT PER EMAR. TOLERATING SIPS OF WATER AND ICE CHIPS. IV FLUID RUNNING AN ABX. REPORT GIVEN TO INDUSTRIAL EDUCATION INSTRUCTOR RN.
[2020-07-14 04:30] LABS: Hematocrit 34.7 % (33.0-51.0); Hemoglobin 11.4 g/dL (11.5-16.0); Mean Corpuscular HGB 29.4 pg (26.0-34.0); Mean Corpuscular HGB Conc 32.9 g/dL (31.5-36.5); Mean Corpuscular Volume 89 fL (80-100); Platelet Count 200 K/mm3 (150-400); RDW Coefficient Variation 12.8 % (11.7-14.2); RDW Standard Deviation 42.2 fL (35.1-46.3); Red Blood Cell Count 3.88 M/mm3 (3.80-5.20); White Blood Cell Count 8.27 K/mm3 (4.00-11.30)
[2020-07-14 04:51] LABS: Anion Gap 6 mmol/L (6-16); Blood Urea Nitrogen 9 mg/dL (8-24); Bun/Creatinine Ratio 15.3 (12.0-20.0); CO2, Blood 25 mmol/L (21-32); Chloride, Blood 107 mmol/L (98-108); Creatinine, Blood 0.59 mg/dL (0.40-1.00); Glomerular Filtration Rate >60 (60-); Glucose, Blood 81 mg/dL (70-99); Potassium, Blood 3.4 mmol/L (3.5-5.5); Sodium, Blood 138 mmol/L (136-145)
--- NOTE | 2020-07-14 06:12 | NUR ---
PT VSS T/O NIGHT. PT CONT TO C/O R UPPER ABD PAIN. PAIN MGD PER EMAR W/REP RELIEF. PT HAD 1 EPISODE OF NAUSEA, REP EMESIS BILE GREEN COLORED. PT REP +FLATUS THIS AM. PT VOIDING URIEN W/O DIFFICULTY. PT NPO; IVF AND ABX CONT PER ORDERS. PT UP INDEP IN ROOM, IS USING CALL LIGHT FOR ASSISTANCE.
--- NOTE | 2020-07-14 07:00 | NUR ---
recvd report from previous shift rn sheron, pt asleep in bed, call light within reach, bed in lowest position, bed rails up
--- NOTE | 2020-07-14 11:36 | NUR ---
0800-DR DRUMMOND ROUNDING ON PT 1000-PT UP TO SHOWER 1100-PT AMBULATING IN HALLWAY
--- NOTE | 2020-07-14 16:48 | NUR ---
shift summary: vss, no acute changes, pt remains a/o x 4, pleasant/cooperative. pt has showered herself/performed oral care, ambulated in hallway multiple times, is independent in room. pt is tolerating clear liquid diet, passing small amounts of flatus, denies n/v. pt rates pain at 3/10, medicated per mar once this shift.
[2020-07-15 05:33] LABS: BASOPHILS ABSOLUTE AUTO 0.03 K/mm3 (0.00-0.23); BASOPHILS PERCENT AUTO 1 % (0-2); EOSINOPHILS ABSOLUTE AUTO 0.13 K/mm3 (0.00-0.68); EOSINOPHILS PERCENT AUTO 3 % (0-6); Hematocrit 35.4 % (33.0-51.0); Hemoglobin 11.8 g/dL (11.5-16.0); IMMATURE GRAN ABSOLUTE AUTO 0.01 K/mm3 (0.00-0.10); IMMATURE GRAN PERCENT AUTO 0 % (0-1); LYMPHOCYTES PERCENT AUTO 23 % (21-46); MONOCYTES ABSOLUTE AUTO 0.41 K/mm3 (0.16-1.47); MONOCYTES PERCENT AUTO 8 % (4-13); Mean Corpuscular HGB 29.6 pg (26.0-34.0); Mean Corpuscular HGB Conc 33.3 g/dL (31.5-36.5); Mean Corpuscular Volume 89 fL (80-100); NEUTROPHILS ABSOLUTE AUTO 3.41 K/mm3 (1.96-9.15); NEUTROPHILS PERCENT AUTO 66 % (41-73); Platelet Count 212 K/mm3 (150-400); RDW Coefficient Variation 12.6 % (11.7-14.2); RDW Standard Deviation 40.7 fL (35.1-46.3); Red Blood Cell Count 3.98 M/mm3 (3.80-5.20); White Blood Cell Count 5.19 K/mm3 (4.00-11.30)
--- NOTE | 2020-07-15 05:43 | NUR ---
PT VSS T/O NIGHT. BT ACTIVE, PT REP PASSING FLATUS, HAD 1 BM THIS SHIFT. PT REP PAIN MORE IN R FLANK THIS AM; MED PER EMAR W/REP RELIEF. PT HAD MILD NAUSEA AFTER PAIN MEDS GIVEN, NO EMESIS. PT ALEKSANDRA CL PO, IS VOIDING URINE W/O DIFFICULTY. PT UP INDEP IN ROOM, ALEKSANDRA WELL. IV ABX CONT PER ORDERS.
[2020-07-15 05:50] LABS: Anion Gap 4 mmol/L (6-16); Blood Urea Nitrogen 7 mg/dL (8-24); Bun/Creatinine Ratio 10.8 (12.0-20.0); CO2, Blood 27 mmol/L (21-32); Calcium, Blood 8.3 mg/dL (8.5-10.1); Chloride, Blood 107 mmol/L (98-108); Creatinine, Blood 0.65 mg/dL (0.40-1.00); Glomerular Filtration Rate >60 (60-); Glucose, Blood 90 mg/dL (70-99); Potassium, Blood 3.7 mmol/L (3.5-5.5); Sodium, Blood 138 mmol/L (136-145)
--- NOTE | 2020-07-15 12:16 | NUR ---
AT 1130 PT CALLED BATTERY CONTAINER TESTER ALUMINUM TO REPORT NEW NUMBNESS IN RIGHT ARM AND RIGHT SIDE OF HER FACE. UPON ASSESSMENT THE PATIENT WAS AAOX4, REPORTED FULL SENSATION BUT DECREASED IN FACE AND RIGHT ARM. HER SENIOR ENERGY ANALYST STRENGTH WAS SLIGHTLY DECREASED IN HER RIGHT HAND BUT OTHERWISE APPEARED EQUAL BILATERALLY. PT REPORTED TAHT IT FELT SIMILAR TO WHAT HAPPENED ON MONDAY, WHEN ASKED FURTHER SHE STATED THAT MONDAY SHE WAS TOLD SHE HAD A TIA AND ANOTHER ON MONDAY. ALERTED DR. GUSTAFSON ABOUT THE PATIENT CONDITION AND STAYED WITH PATIENT UNTIL PATIENT LEFT FOR CT SCAN AT APPROX 1150. PT REPORTS THAT BEFORE HER TWO BOUTS OF EMESIS TODAY THAT SHE FELT THE NUMBNESS RETURN, PRIOR TO HER TIA'S ON MONDAY AND MONDAY SHE REPORTED SIGNIFICANT NAUSEA WELL. PT IS CURRENTLY SITTING UP IN BED AND REPORTS CONTINUED NUMBNESS IN THE FACE AND ARM. CURRENTLY HOLDING HER FOOD AND PO INTAKE WHILE PATIENT IS HAVING NUMBNESS IN HER FACE. PLAN TO CONTINUE TO MONITOR FOR CHANGES IN CONDITION AND INCREASE VITAL SIGNS FREQUENCY. PT HAS CALL LIGHT IN HER LEFT HAND AND IS GOING TO CALL IF CONDITION CHANGES.
--- NOTE | 2020-07-15 14:14 | NUR ---
PT REPORTS NUMBNESS CURRENTLY RESOLVED. PT DEMONSTRATED SAFE SWALLOWING OF WATER. LUNCH TRAY GIVEN TO PATIENT. EDUCATED PT ON IMPORTANCE OF SAFE SWALLOWING HABITS AND EDUCATED ON IMPORTANCE OF CALLING IF SYMPTOMS RETURN.
--- NOTE | 2020-07-15 15:43 | NUR ---
Patient is sitting on EOB and alert. Patient tells me about her medical history, her current issues and the plan going forward. Patient then tells me about her life story including the triumphs and tragedies. I highlight all that she has overcome and the inner strength that she possesses. Patient talks about her shannon journey and the support she has had from her sister through the years. She explains about how important her shannon is as she deeals with medical issues. I reinforce helpful attitudes and practices and provide therapeutic listening, pastoral student financial services counselor and prayer. Patient responds well and shows signs of being encouraged in her shannon. I will continue to remain available to patient and family.
--- NOTE | 2020-07-15 16:38 | NUR ---
SHIFT SUMMARY AA0X4. NO ACUTE CHANGES SINCE PREVIOUS NOTE. PT HAS REPORTED MINIMAL PAIN IN RUQ, HAS DECLINED PAIN MEDICATION SINCE EARLY IN SHIFT. NO EMESIS OR NUMBNESS SINCE PREVIOUS NOTE. PT TOLERATED FULL LIQUID DIET WELL. PT AMBULATES WELL AND IS VOIDING WELL. ONE LOOSE BM DURING SHIFT. NONE SINCE. ABX INFUSING DURING SHIFT.
--- NOTE | 2020-07-16 03:34 | NUR ---
SHIFT SUMMARY PT RESTING WELL THIS AM. AAOX4. DISCOMFORT CONTROLLED WITH X1 PAIN PILL YESTARDAY EVENING. NO NAUSEA/EMESIS. IV ABX PER ORDERS. PT REPORTING SMALL AMOUNTS OF FLATUS + MULTIPLE SMALL BMs. INDEPENDENT IN ROOM + OUT IN HALLS AMBULATING. PT REPORTING SLIGHT TINGLING TO BOTTOM OF LEFT FOOT POST AMBULATION, TINGLING GONE AFTER GETTING BACK TO BED. NO ACUTE CHANGES THIS SHIFT. PT CURRENTLY RESTING IN BED WITH CALL LIGHT IN REACH.
[2020-07-16 04:31] LABS: BASOPHILS ABSOLUTE AUTO 0.03 K/mm3 (0.00-0.23); BASOPHILS PERCENT AUTO 1 % (0-2); EOSINOPHILS ABSOLUTE AUTO 0.17 K/mm3 (0.00-0.68); EOSINOPHILS PERCENT AUTO 4 % (0-6); Hematocrit 35.5 % (33.0-51.0); Hemoglobin 11.9 g/dL (11.5-16.0); Mean Corpuscular HGB 29.7 pg (26.0-34.0); Mean Corpuscular HGB Conc 33.5 g/dL (31.5-36.5); Mean Corpuscular Volume 89 fL (80-100); Mean Platelet Volume 8.7 fL (9.1-12.4); Platelet Count 230 K/mm3 (150-400); RDW Coefficient Variation 12.3 % (11.7-14.2); Red Blood Cell Count 4.01 M/mm3 (3.80-5.20); White Blood Cell Count 4.45 K/mm3 (4.00-11.30)
[2020-07-16 04:33] LABS: IMMATURE GRAN PERCENT AUTO 0 % (0-1); LYMPHOCYTES ABSOLUTE AUTO 1.46 K/mm3 (0.84-5.20); LYMPHOCYTES PERCENT AUTO 33 % (21-46); MONOCYTES ABSOLUTE AUTO 0.36 K/mm3 (0.16-1.47); MONOCYTES PERCENT AUTO 8 % (4-13); NEUTROPHILS ABSOLUTE AUTO 2.43 K/mm3 (1.96-9.15); NEUTROPHILS PERCENT AUTO 55 % (41-73)
[2020-07-16 04:57] LABS: Anion Gap 5 mmol/L (6-16); Blood Urea Nitrogen 6 mg/dL (8-24); CO2, Blood 29 mmol/L (21-32); Calcium, Blood 8.4 mg/dL (8.5-10.1); Chloride, Blood 104 mmol/L (98-108); Creatinine, Blood 0.75 mg/dL (0.40-1.00); Glomerular Filtration Rate >60 (60-); Glucose, Blood 88 mg/dL (70-99); Potassium, Blood 3.8 mmol/L (3.5-5.5); Sodium, Blood 138 mmol/L (136-145)
[2020-07-16] MEDS ORDERED: HYDR1TAB94 PO (13:12)
[2020-07-16] MEDS ORDERED: PROBIOTIC PO (13:13)
[2020-07-16] MEDS ORDERED: CIPR500 PO (13:14)
[2020-07-16] MEDS ORDERED: METR500 PO (13:15)
[2020-07-16] MEDS ORDERED: ONDA4ODT MM (13:16)
--- NOTE | 2020-07-16 13:55 | NUR ---
PATIENT D/C'D TO HOME AT THIS TIME WITH FAMILY. PATIENT STATES UNDERSTANDING OF MEDS, F/U APPT, DIET, ETC. NO C/O AT THIS TIME.
== END 2020-07-16 13:55 | disposition home or self-care (01) | DRG 392 ==
LOC: ER 05:44 → SURS 10:08
PROVIDERS: Emergency Medicine; Family Medicine; ADMIT Internal Medicine
DX: K57.20 Diverticulitis of large intestine with perforation and abscess without bleeding (principal); G45.9 Transient cerebral ischemic attack, unspecified; E03.9 Hypothyroidism, unspecified; I25.10 Atherosclerotic heart disease of native coronary artery without angina pectoris; I10 Essential (primary) hypertension; Z88.1 Allergy status to other antibiotic agents; Z88.8 Allergy status to other drugs, medicaments and biological substances; Z95.5 Presence of coronary angioplasty implant and graft; Z87.891 Personal history of nicotine dependence; Z90.710 Acquired absence of both cervix and uterus; Z79.82 Long term (current) use of aspirin; Z79.02 Long term (current) use of antithrombotics/antiplatelets; Z79.899 Other long term (current) drug therapy
CPT/HCPCS: 36415; 70496; 70498; 74177; 76705; 80048; 80053; 83690; 85025; 85027; 96361; 96365; 96375; 99285-25; A9270; J1650; J2405; J2543; J3010; J7030; J7120; Q9967

== ENCOUNTER 2020-08-13 17:59 | Emergency (ER) | payer OTHER ==
[~2020-08-13] VITALS: Ht 165.1 cm; Wt 87.5 kg
[~2020-08-13 17:59] MED LIST changes: +CIPR500 PO; +METR500 PO; +ONDA4ODT MM; +PROBIOTIC PO
[2020-08-13 18:21] LABS: BASOPHILS ABSOLUTE AUTO 0.03 K/mm3 (0.00-0.23); BASOPHILS PERCENT AUTO 1 % (0-2); EOSINOPHILS ABSOLUTE AUTO 0.13 K/mm3 (0.00-0.68); EOSINOPHILS PERCENT AUTO 2 % (0-6); Hematocrit 38.4 % (33.0-51.0); IMMATURE GRAN ABSOLUTE AUTO 0.01 K/mm3 (0.00-0.10); IMMATURE GRAN PERCENT AUTO 0 % (0-1); LYMPHOCYTES ABSOLUTE AUTO 1.96 K/mm3 (0.84-5.20); LYMPHOCYTES PERCENT AUTO 33 % (21-46); MONOCYTES ABSOLUTE AUTO 0.44 K/mm3 (0.16-1.47); MONOCYTES PERCENT AUTO 7 % (4-13); Mean Corpuscular HGB 30.1 pg (26.0-34.0); Mean Corpuscular HGB Conc 33.9 g/dL (31.5-36.5); Mean Corpuscular Volume 89 fL (80-100); NEUTROPHILS ABSOLUTE AUTO 3.34 K/mm3 (1.96-9.15); NEUTROPHILS PERCENT AUTO 57 % (41-73); Platelet Count 237 K/mm3 (150-400); RDW Coefficient Variation 12.5 % (11.7-14.2); RDW Standard Deviation 40.6 fL (35.1-46.3); Red Blood Cell Count 4.32 M/mm3 (3.80-5.20); White Blood Cell Count 5.91 K/mm3 (4.00-11.30)
[2020-08-13 18:55] LABS: Alanine Aminotransfer (ALT/SGP 32 U/L (12-78); Albumin, Blood 3.7 g/dL (3.4-5.0); Albumin/Globulin Ratio 0.9 (0.8-1.8); Alk Phos 73 U/L (50-136); Anion Gap 6 mmol/L (6-16); Aspartate Aminotrans (AST/SGOT 23 U/L (12-37); Bilirubin, Total 0.5 mg/dL (0.1-1.0); Blood Urea Nitrogen 18 mg/dL (8-24); Bun/Creatinine Ratio 25.4 (12.0-20.0); CO2, Blood 28 mmol/L (21-32); Calcium, Blood 9.1 mg/dL (8.5-10.1); Chloride, Blood 108 mmol/L (98-108); Creatinine, Blood 0.71 mg/dL (0.40-1.00); Globulin, Blood 3.9 g/dL (2.2-4.0); Glomerular Filtration Rate >60 (60-); Glucose, Blood 90 mg/dL (70-99); Potassium, Blood 3.6 mmol/L (3.5-5.5); Sodium, Blood 142 mmol/L (136-145); Total Protein, Blood 7.6 g/dL (6.4-8.2); Troponin I <0.015 ng/mL (0.000-0.040)
== END 2020-08-13 19:25 | disposition home or self-care (01) ==
LOC: ER 17:59
PROVIDERS: Emergency Medicine
DX: R07.9 Chest pain, unspecified (principal); I10 Essential (primary) hypertension; Z79.02 Long term (current) use of antithrombotics/antiplatelets; Z79.82 Long term (current) use of aspirin; Z79.899 Other long term (current) drug therapy; Z88.1 Allergy status to other antibiotic agents; Z88.8 Allergy status to other drugs, medicaments and biological substances; Z87.891 Personal history of nicotine dependence
CPT/HCPCS: 71046; 80053; 84484; 85025; 93005; 93010; 99284-25

== ENCOUNTER 2020-09-07 14:53 | Emergency (ER) | payer OTHER ==
[~2020-09-07] VITALS: Ht 167.6 cm; Wt 86.2 kg
[2020-09-07 16:32] LABS: Hematocrit 38.9 % (33.0-51.0); Hemoglobin 12.7 g/dL (11.5-16.0); Mean Corpuscular HGB 28.9 pg (26.0-34.0); Mean Corpuscular HGB Conc 32.6 g/dL (31.5-36.5); Mean Corpuscular Volume 89 fL (80-100); Platelet Count 169 K/mm3 (150-400); RDW Coefficient Variation 13.1 % (11.7-14.2); RDW Standard Deviation 42.6 fL (35.1-46.3); Red Blood Cell Count 4.39 M/mm3 (3.80-5.20); White Blood Cell Count 3.59 K/mm3 (4.00-11.30)
[2020-09-07 16:56] LABS: Alanine Aminotransfer (ALT/SGP 45 U/L (12-78); Albumin, Blood 3.1 g/dL (3.4-5.0); Albumin/Globulin Ratio 0.8 (0.8-1.8); Alk Phos 86 U/L (50-136); Anion Gap 7 mmol/L (6-16); Aspartate Aminotrans (AST/SGOT 31 U/L (12-37); Bilirubin, Total 0.4 mg/dL (0.1-1.0); Blood Urea Nitrogen 10 mg/dL (8-24); CO2, Blood 23 mmol/L (21-32); Calcium, Blood 7.9 mg/dL (8.5-10.1); Chloride, Blood 108 mmol/L (98-108); Creatinine, Blood 0.71 mg/dL (0.40-1.00); Glomerular Filtration Rate >60 (60-); Glucose, Blood 103 mg/dL (70-99); Potassium, Blood 3.8 mmol/L (3.5-5.5); Sodium, Blood 138 mmol/L (136-145); Total Protein, Blood 7.1 g/dL (6.4-8.2); Troponin I <0.015 ng/mL (0.000-0.040)
[2020-09-07 17:11] LABS: BAND PERCENT MAN 8 % (0-8); BASOPHILS ABSOLUTE MAN 0.03 K/mm3 (0.00-0.23); BASOPHILS PERCENT MAN 1 % (0-2); EOSINOPHILS PERCENT MAN 0 % (0-6); LYMPHOCYTES ABSOLUTE MAN 0.75 K/mm3 (0.84-5.20); LYMPHOCYTES PERCENT MAN 21 % (21-46); MONOCYTES ABSOLUTE MAN 0.17 K/mm3 (0.16-1.47); MONOCYTES PERCENT MAN 5 % (4-13); NEUTROPHILS ABSOLUTE MAN 2.62 K/mm3 (1.96-9.15); SEG NEUTROPHILS PERCENT MAN 65 % (41-73); TOTAL CELLS COUNTED 100
[2020-09-07 18:05] LABS: Source, Urine Voided
[2020-09-07] MEDS ORDERED: ONDA4ODT SL (18:21)
[2020-09-07 18:41] LABS: Appearance, Urine Clear (Clear); Bilirubin, Urine Neg (Neg); Blood, Urine 1+ (Neg); Color, Urine Yellow (P-Yellow); Glucose Qualitative, Urine Neg (Neg); Ketones, Urine Neg (Neg); Leukocyte Esterase, Urine Neg (Neg); Nitrite, Urine Neg (Neg); Protein, Urine 2+ (Neg); Specific Gravity, Urine 1.005 (1.003-1.022); Urobilinogen, Urine NORM (Normal)
[2020-09-07 18:50] LABS: Bacteria Not Seen /hpf; Red Blood Cells, Urine 0-2 /hpf (0-2); Squamous Epithelial Cells Few /hpf (Few); White Blood Cells, Urine 0-2 /hpf (0-5)
== END 2020-09-07 19:38 | disposition home or self-care (01) ==
LOC: ER 14:53
PROVIDERS: Emergency Medicine
DX: R55 Syncope and collapse (principal); I10 Essential (primary) hypertension; I25.10 Atherosclerotic heart disease of native coronary artery without angina pectoris; J44.9 Chronic obstructive pulmonary disease, unspecified; E03.9 Hypothyroidism, unspecified; Z95.5 Presence of coronary angioplasty implant and graft; Z88.1 Allergy status to other antibiotic agents; Z88.8 Allergy status to other drugs, medicaments and biological substances; Z79.82 Long term (current) use of aspirin; Z79.890 Hormone replacement therapy; Z79.02 Long term (current) use of antithrombotics/antiplatelets; Z87.891 Personal history of nicotine dependence; Z86.16 Personal history of COVID-19
CPT/HCPCS: 70450; 71045; 80053; 81001; 83880; 84443; 84484; 85025; 93005; 93010; 96374; 99285-25; J2405; J7030

== ENCOUNTER 2020-09-09 10:54 | Inpatient (IN) | payer OTHER ==
[~2020-09-09] VITALS: Ht 167.6 cm; Wt 85.5 kg
[~2020-09-09 10:54] MED LIST changes: +ONDA4ODT SL
[2020-09-09 13:22] LABS: BAND PERCENT MAN 9 % (0-8); BASOPHILS PERCENT MAN 0 % (0-2); EOSINOPHILS PERCENT MAN 0 % (0-6); LYMPHOCYTES % ATYPICAL MANUAL 2 % (0-0); LYMPHOCYTES PERCENT MAN 10 % (21-46); MONOCYTES PERCENT MAN 1 % (4-13); SEG NEUTROPHILS PERCENT MAN 78 % (41-73); TOTAL CELLS COUNTED 100
[2020-09-09 14:51] LABS: Hematocrit 33.1 % (33.0-51.0); Hemoglobin 11.1 g/dL (11.5-16.0); Mean Corpuscular HGB 29.4 pg (26.0-34.0); Mean Corpuscular HGB Conc 33.5 g/dL (31.5-36.5); Mean Corpuscular Volume 88 fL (80-100); Mean Platelet Volume 9.1 fL (9.1-12.4); Platelet Count 176 K/mm3 (150-400); RDW Coefficient Variation 13.1 % (11.7-14.2); RDW Standard Deviation 42.6 fL (35.1-46.3); Red Blood Cell Count 3.77 M/mm3 (3.80-5.20)
[2020-09-09 15:25] LABS: Alanine Aminotransfer (ALT/SGP 34 U/L (12-78); Albumin, Blood 2.7 g/dL (3.4-5.0); Albumin/Globulin Ratio 0.7 (0.8-1.8); Alk Phos 72 U/L (50-136); Anion Gap 8 mmol/L (6-16); Aspartate Aminotrans (AST/SGOT 35 U/L (12-37); Bilirubin, Total 0.5 mg/dL (0.1-1.0); Blood Urea Nitrogen 7 mg/dL (8-24); Bun/Creatinine Ratio 10.8 (12.0-20.0); CO2, Blood 22 mmol/L (21-32); Calcium, Blood 7.5 mg/dL (8.5-10.1); Chloride, Blood 107 mmol/L (98-108); Creatinine, Blood 0.65 mg/dL (0.40-1.00); Glomerular Filtration Rate >60 (60-); Glucose, Blood 96 mg/dL (70-99); Magnesium, Blood 1.7 mg/dL (1.6-2.4); Potassium, Blood 3.6 mmol/L (3.5-5.5); Sodium, Blood 137 mmol/L (136-145); Total Protein, Blood 6.7 g/dL (6.4-8.2); Troponin I 0.017 ng/mL (0.000-0.040)
[2020-09-09 15:46] LABS: BAND PERCENT MAN 15 % (0-8); BASOPHILS PERCENT MAN 0 % (0-2); EOSINOPHILS PERCENT MAN 0 % (0-6); LYMPHOCYTES % ATYPICAL MANUAL 3 % (0-0); LYMPHOCYTES ABSOLUTE MAN 0.41 K/mm3 (0.84-5.20); LYMPHOCYTES PERCENT MAN 5 % (21-46); MONOCYTES ABSOLUTE MAN 0.05 K/mm3 (0.16-1.47); MONOCYTES PERCENT MAN 1 % (4-13); NEUTROPHILS ABSOLUTE MAN 4.73 K/mm3 (1.96-9.15); SEG NEUTROPHILS PERCENT MAN 76 % (41-73); TOTAL CELLS COUNTED 100
[2020-09-09] MEDS ORDERED: RANOLAZINE ER500 M2 PO (18:21)
[2020-09-09 18:48] LABS: Hematocrit 35.1 % (33.0-51.0); Hemoglobin 11.3 g/dL (11.5-16.0); Mean Corpuscular HGB 29.4 pg (26.0-34.0); Mean Corpuscular HGB Conc 32.2 g/dL (31.5-36.5); Mean Corpuscular Volume 91 fL (80-100); Mean Platelet Volume 8.9 fL (9.1-12.4); Platelet Count 179 K/mm3 (150-400); RDW Coefficient Variation 13.3 % (11.7-14.2); RDW Standard Deviation 44.5 fL (35.1-46.3); Red Blood Cell Count 3.85 M/mm3 (3.80-5.20); White Blood Cell Count 4.51 K/mm3 (4.00-11.30)
[2020-09-09 19:17] LABS: BAND PERCENT MAN 11 % (0-8); BASOPHILS PERCENT MAN 0 % (0-2); EOSINOPHILS PERCENT MAN 0 % (0-6); LYMPHOCYTES % ATYPICAL MANUAL 3 % (0-0); LYMPHOCYTES ABSOLUTE MAN 0.85 K/mm3 (0.84-5.20); LYMPHOCYTES PERCENT MAN 16 % (21-46); MONOCYTES ABSOLUTE MAN 0.04 K/mm3 (0.16-1.47); MONOCYTES PERCENT MAN 1 % (4-13); SEG NEUTROPHILS PERCENT MAN 69 % (41-73); TOTAL CELLS COUNTED 100
--- NOTE | 2020-09-10 00:47 | NUR ---
PT C/O HEADACHE. SHE REPORTS THAT SHE SUFFERS FROM MIGRAINES AND HAS TAKEN MEDICATION FOR IT IN THE PAST, BUT DOES NOT RECALL WHAT THE NAME. SHE REPORTS MINIMAL IMPROVEMENT WITH APAP, STATING THAT SHE TOOK SOME IN THE ER BEFORE COMING UP TO THE FLOOR.
[2020-09-10 05:49] LABS: Hematocrit 34.2 % (33.0-51.0); Hemoglobin 11.5 g/dL (11.5-16.0); Mean Corpuscular HGB 29.3 pg (26.0-34.0); Mean Corpuscular HGB Conc 33.6 g/dL (31.5-36.5); Mean Corpuscular Volume 87 fL (80-100); Mean Platelet Volume 8.7 fL (9.1-12.4); Platelet Count 197 K/mm3 (150-400); RDW Coefficient Variation 13.2 % (11.7-14.2); Red Blood Cell Count 3.93 M/mm3 (3.80-5.20)
[2020-09-10 06:11] LABS: BAND PERCENT MAN 16 % (0-8); BASOPHILS PERCENT MAN 0 % (0-2); EOSINOPHILS PERCENT MAN 0 % (0-6); LYMPHOCYTES ABSOLUTE MAN 0.79 K/mm3 (0.84-5.20); LYMPHOCYTES PERCENT MAN 15 % (21-46); MONOCYTES ABSOLUTE MAN 0.26 K/mm3 (0.16-1.47); MONOCYTES PERCENT MAN 5 % (4-13); NEUTROPHILS ABSOLUTE MAN 4.24 K/mm3 (1.96-9.15); SEG NEUTROPHILS PERCENT MAN 64 % (41-73); TOTAL CELLS COUNTED 100
[2020-09-10 06:14] LABS: Troponin I 0.015 ng/mL (0.000-0.040)
[2020-09-10 06:21] LABS: Alanine Aminotransfer (ALT/SGP 35 U/L (12-78); Albumin, Blood 2.7 g/dL (3.4-5.0); Albumin/Globulin Ratio 0.7 (0.8-1.8); Alk Phos 72 U/L (50-136); Anion Gap 8 mmol/L (6-16); Aspartate Aminotrans (AST/SGOT 36 U/L (12-37); Bilirubin, Total 0.7 mg/dL (0.1-1.0); Blood Urea Nitrogen 7 mg/dL (8-24); Bun/Creatinine Ratio 12.9 (12.0-20.0); CO2, Blood 24 mmol/L (21-32); Calcium, Blood 7.8 mg/dL (8.5-10.1); Chloride, Blood 106 mmol/L (98-108); Creatinine, Blood 0.54 mg/dL (0.40-1.00); Glomerular Filtration Rate >60 (60-); Glucose, Blood 99 mg/dL (70-99); Potassium, Blood 3.7 mmol/L (3.5-5.5); Sodium, Blood 138 mmol/L (136-145); Total Protein, Blood 6.7 g/dL (6.4-8.2)
--- NOTE | 2020-09-10 06:34 | NUR ---
SHIFT SUMMARY: KATHRYN IS A&OX4. VSS, NO ACUTE EVENTS OVERNIGHT. POWERGLIDE TO JAZMINE PATENT. SHE DID HAVE AN EPISODE OF NAUSEA AND VOMITING FOR WHICH ZOFRAN WAS EFFECTIVE. SHE IS INDEPENDENT IN THE ROOM, INSTRUCTED TO CALL FOR ASSISTANCE IF SHE EXPERIENCES ANY DIZZINESS/LIGHTHEADEDNESS. SHE REPORTS THE FIORICET EFFECTIVE FOR HER HEADACHE WELL THE ROBITUSSIN FOR HER COUGH. SHE IS LYING IN BED WITH THE CALL LIGHT IN REACH. WILL REPORT TO DAY SHIFT RN.
[2020-09-10 12:14] LABS: C-REACTIVE PROTEIN, EXT RANGE 13.2 mg/dL (0.000-0.300)
--- NOTE | 2020-09-10 13:19 | NUR ---
Patient is sitting up in bed and alert. Patient is admittedly panicked and scared. She is concerned about her heart issues and the COVID that she is battling. We explore sources of peace and strength to her and she lists her family and her shannon as well as visualizing herself well. I reinforce helpful attitudes and practices and provide therapeutic listening, anxiety containment, a calming presence and prayer. Patient responds well to all interventions and is able to relax to the point of almost falling a sleep (showing signs of reduced stress and fear). I will continue to remain available to patient and family.
--- NOTE | 2020-09-10 16:31 | NUR ---
SHIFT SUMMARY PATIENT MEDICATED X1 FOR HEADACHE AND X1 FOR COUGH. MAINTAINING O2 SATURATIONS ABOVE 90% ON ROOM AIR. PATIENT REPORTS SOME DIZZINESS WHEN AMBULATING, PATIENT STANDBY ASSIST TO BATHROOM. MEDICATED X1 FOR NAUSEA. POOR APPETITE. SPIRITUAL CARE VISITED WITH PATIENT THIS AFTERNOON.
--- NOTE | 2020-09-11 00:55 | NUR ---
@2130- PT. WITH COMPLAINTS OF FEELING LIGHTHEADED, WITH NUMBNESS, TINGLING SENSATION IN BOTH HANDS, AND PAIN IN THE BACK OF HEAD. VSS, PT. LYING IN BED, NO APPARENT DISTRESS NOTED. NOTIFIED DR. GUTIERREZ, INSTRUCTED TO ADMINISTER PRN ATARAX AND MONITOR. PT. RESTING QUIETLY IN BED, PT. REPORTS IMPROVEMENT OF SX'S. CALL LIGHT WITHIN REACH AND SIDE RAIL UPX2. WILL CONT TO MONITOR.
[2020-09-11 05:04] LABS: BASOPHILS ABSOLUTE AUTO 0.01 K/mm3 (0.00-0.23); BASOPHILS PERCENT AUTO 0 % (0-2); EOSINOPHILS PERCENT AUTO 0 % (0-6); Hematocrit 35.1 % (33.0-51.0); Hemoglobin 11.9 g/dL (11.5-16.0); Mean Corpuscular HGB 29.5 pg (26.0-34.0); Mean Corpuscular HGB Conc 33.9 g/dL (31.5-36.5); Mean Corpuscular Volume 87 fL (80-100); Mean Platelet Volume 8.6 fL (9.1-12.4); Platelet Count 228 K/mm3 (150-400); RDW Standard Deviation 41.2 fL (35.1-46.3); Red Blood Cell Count 4.03 M/mm3 (3.80-5.20); White Blood Cell Count 5.32 K/mm3 (4.00-11.30)
[2020-09-11 05:05] LABS: IMMATURE GRAN ABSOLUTE AUTO 0.04 K/mm3 (0.00-0.10); IMMATURE GRAN PERCENT AUTO 1 % (0-1); LYMPHOCYTES ABSOLUTE AUTO 1.01 K/mm3 (0.84-5.20); LYMPHOCYTES PERCENT AUTO 19 % (21-46); MONOCYTES ABSOLUTE AUTO 0.24 K/mm3 (0.16-1.47); MONOCYTES PERCENT AUTO 5 % (4-13); NEUTROPHILS ABSOLUTE AUTO 4.02 K/mm3 (1.96-9.15); NEUTROPHILS PERCENT AUTO 76 % (41-73)
[2020-09-11 05:23] LABS: Anion Gap 8 mmol/L (6-16); Blood Urea Nitrogen 7 mg/dL (8-24); Bun/Creatinine Ratio 11.9 (12.0-20.0); CO2, Blood 26 mmol/L (21-32); Calcium, Blood 8.3 mg/dL (8.5-10.1); Chloride, Blood 102 mmol/L (98-108); Creatinine, Blood 0.59 mg/dL (0.40-1.00); Glomerular Filtration Rate >60 (60-); Glucose, Blood 84 mg/dL (70-99); Potassium, Blood 3.5 mmol/L (3.5-5.5); Sodium, Blood 136 mmol/L (136-145)
[2020-09-11 05:26] LABS: BAND PERCENT MAN 2 % (0-8); BASOPHILS PERCENT MAN 0 % (0-2); EOSINOPHILS PERCENT MAN 0 % (0-6); LYMPHOCYTES ABSOLUTE MAN 0.85 K/mm3 (0.84-5.20); LYMPHOCYTES PERCENT MAN 16 % (21-46); MONOCYTES ABSOLUTE MAN 0.21 K/mm3 (0.16-1.47); MONOCYTES PERCENT MAN 4 % (4-13); NEUTROPHILS ABSOLUTE MAN 4.25 K/mm3 (1.96-9.15); SEG NEUTROPHILS PERCENT MAN 78 % (41-73); TOTAL CELLS COUNTED 100
--- NOTE | 2020-09-11 05:53 | NUR ---
SHIFT SUMMARY- PT. STATED FEELING TIRED, LIGHTHEADED, AND WEAK LAST NIGHT. PT. A SBA IN THE ROOM, CALLS APPROPRIATELY. HAS POOR APPETITE, ENCOURAGED PO FLUIDS DURING THE NIGHT, NO C/O PAIN. RESTED QUIETLY T/O THE NIGHT, NO APPARENT DISTRESS NOTED. VSS. CALL LIGHT WITHIN REACH AND SIDE RAILS UPX2. WILL CONT TO MONITOR.
--- NOTE | 2020-09-11 17:42 | NUR ---
SHIFT SUMMARY PT AOX4; CALLS APPRORIATELY. THIS AM PT DESAT DURING AMBULATION TO BSC; SATS AROUND LOW 80'S AND BP WAS LOW. CALLED THE RT FOR BREATHING TX AND CALLED THE DR AND PT RECEIVED A BOLUS OF NS. PT STATED FEELING MUCH BETTER AND VSS. PT IS ON 2L OF 02; SATS ABOVE 90S. DYSPNEA ON EXERTION. DENIES PAIN OR CP. NS ON TELE. BED IS IN THE LOWEST POSITION AND CALL LIGHT WITHIN REACH
--- NOTE | 2020-09-11 22:24 | NUR ---
FEBRILE FEVER OF 100.9 VIAL ORALLY. ICE PACK APPLIED TO BILATERAL AXILLARY, COOL WASHCLOTH APPLIED TO FOREHEAD, BLANKET REMOVED, AND ROOM TEMP TURNED DOWN. BED ALARM ON, WILL CONTINUE TO MONITOR.
--- NOTE | 2020-09-12 05:36 | NUR ---
TRUCK SHOP SUPERVISOR SUMMARY PT A/O X4, GETS UP WITH SBA DUE TO DIZZINIESS AND RECENT FALL AT HOME. PT'S BEEN FEBRILE OVERNIGHT. MEDICATED WITH TYLENOL ALONG WITH NON-PHARMACOLOGICAL INTERVENTIONS TO BRING DOWN FEVERS. PT EXPERIENCED CHILLS. CONTINUES TO BE ON 2L O2 VIA NC MAINTAINING SATS AT 92% AND ABOVE. AFEBRILE THIS MORNING. DENIED PAIN, NAUSEA. BED ALARM ON, CALL LIGHT WITHIN REACH, WILL CONTINUE TO MONITOR.
[2020-09-12 05:44] LABS: Hematocrit 33.8 % (33.0-51.0); Hemoglobin 11.3 g/dL (11.5-16.0); Mean Corpuscular HGB 29.5 pg (26.0-34.0); Mean Corpuscular HGB Conc 33.4 g/dL (31.5-36.5); Mean Corpuscular Volume 88 fL (80-100); Mean Platelet Volume 9.1 fL (9.1-12.4); Platelet Count 258 K/mm3 (150-400); RDW Coefficient Variation 13.2 % (11.7-14.2); RDW Standard Deviation 42.5 fL (35.1-46.3); Red Blood Cell Count 3.83 M/mm3 (3.80-5.20); White Blood Cell Count 5.48 K/mm3 (4.00-11.30)
[2020-09-12 06:04] LABS: Albumin, Blood 2.4 g/dL (3.4-5.0); Anion Gap 10 mmol/L (6-16); Blood Urea Nitrogen 8 mg/dL (8-24); Bun/Creatinine Ratio 15.4 (12.0-20.0); CO2, Blood 24 mmol/L (21-32); Calcium, Blood 8.4 mg/dL (8.5-10.1); Chloride, Blood 105 mmol/L (98-108); Creatinine, Blood 0.52 mg/dL (0.40-1.00); Glomerular Filtration Rate >60 (60-); Glucose, Blood 91 mg/dL (70-99); Phosphorus, Blood 2.5 mg/dL (2.5-4.9); Potassium, Blood 3.2 mmol/L (3.5-5.5); Sodium, Blood 139 mmol/L (136-145)
[2020-09-12 09:32] LABS: PCO2 Arterial 37.1 mmHg (35-45); PO2 Arterial 54.5 mmHg (80-100); pH Blood Arterial 7.47 (7.35-7.45)
--- NOTE | 2020-09-12 18:15 | NUR ---
SHIFT SUMMARY: NO ACUTE EVENTS TO REPORT THIS SHIFT. PT A&O; CALM AND COOPERATIVE WITH CARE. NO C/O PAIN THIS SHIFT. TELE D/C'd THIS SHIFT. O2 @ 4L. PATIENT UP WITH SBA TO BSC. REMDESIVIR STARTED THIS SHIFT. WCMARILOU.
--- NOTE | 2020-09-13 04:59 | NUR ---
ATHLETIC INSTRUCTOR SUMMARY PT A/O X4, SLEPT WELL TONIGHT. NO COMPLAINTS OF PAIN. CONTINUES TO BE ON 4L O2 VIA NC SATTING IN THE MID TO HIGH 90'S. SOB WITH EXERTION, NON-PRODUCTIVE COUGH. PT'S BEEN AFEBRILE. VSS. AMBULATES WITH SBA TO BSC. CALL LIGHT WITHIN REACH, WILL CONTINUE TO MONITOR.
[2020-09-13 06:17] LABS: Albumin, Blood 2.6 g/dL (3.4-5.0); Anion Gap 5 mmol/L (6-16); Blood Urea Nitrogen 10 mg/dL (8-24); Bun/Creatinine Ratio 22.6 (12.0-20.0); CO2, Blood 27 mmol/L (21-32); Calcium, Blood 8.8 mg/dL (8.5-10.1); Chloride, Blood 105 mmol/L (98-108); Creatinine, Blood 0.44 mg/dL (0.40-1.00); Glomerular Filtration Rate >60 (60-); Glucose, Blood 112 mg/dL (70-99); Phosphorus, Blood 3.5 mg/dL (2.5-4.9); Potassium, Blood 4.2 mmol/L (3.5-5.5); Sodium, Blood 137 mmol/L (136-145)
--- NOTE | 2020-09-13 19:25 | NUR ---
SHIFT SUMMARY: NO ACUTE EVENT TO REPORT THIS SHIFT. PT A&O; CALM AND COOPERATIVE WITH CARE. NO C/O PAIN THIS SHIFT. PT UP WITH SBA TO BSC / BATHROOM; PATIENT REPORTS FEELING DIZZY WHEN FIRST SITTING ON SIDE OF BED; PT AWARE OF NEED TO LET DIZZINESS RESOLVE BEFORE AMBULATING. PT REMAINS ON O2 @ 4L. REMDESIVIR & STEROIDS CONTINUING. REPORT GIVEN TO ONCOMING RN.
--- NOTE | 2020-09-14 06:49 | NUR ---
MACHINE WHITENER SUMMARY PT A/O X4, SBA TO THE BATHROOM. LIGHTHEADEDNESS IS GETTING BETTER. PT SAID SHE FELT SOME MIDCHEST PRESSURE OVERNIGHT. NO PAIN RADIATION TO ELSEWHERE. SHE DENIES SOB WHEN IT HAPPENED. PT TITRATED DOWN TO 3L O2 VIA NC FROM 4L O2 THIS MORNING AND SATTING IN THE HIGH 90'S. VITALS STABLE. AFEBRILE. WILL REPORT TO ONCOMING RN.
[2020-09-14] MEDS ORDERED: DEXA6 PO (12:35)
[2020-09-14] MEDS ORDERED: ALBU90OI INH (12:35)
[2020-09-14] MEDS ORDERED: DOCU100 PO (12:35)
[2020-09-14] MEDS ORDERED: CODEINE-GUAIFE120 M1 PO (12:36)
--- NOTE | 2020-09-14 17:47 | NUR ---
SHIFT SUMMARY PT IS AOX4. PT DENIES PAIN, N/V. PT C/O SLIGHT SOB WITH EXERTION. PT SATS GREATER THAN 90% ON RA. PT IS INDEPENDENT IN ROOM. PT APPETITE IS MODERATE. NO PROCEDURES DONE THIS SHIFT. PLAN IS FOR PRE-AUTHORIZATION FOR REMDESIVIR INFUSIONS IN [facility]; HOWEVER, APPROVAL HAS NOT BEEN AUTHORIZED THIS SHIFT SO PT MAY DC TOMORROW. PT HAS NOT HAD VISITORS THIS SHIFT PER COVID POLICY. ENHANCED ISOLATION PRECAUTIONS MAINTAINED T/O SHIFT. PT IS IN BED, CALL LIGHT IN REACH, BED IN LOW POSITION.
--- NOTE | 2020-09-15 02:46 | NUR ---
09/14/202144 PT LYING IN BED, REPORTS A LITTLE SOB W/EXERTION, ON RA AT 94%. PT HAS HEMORROIDS, USING ANUSAL CREAM. NO OTHER APPARENT SIGNS OF DISTRESS. CALL LIGHT IS IN REACH.
--- NOTE | 2020-09-15 03:20 | NUR ---
0000 PT LYING IN BED, EYES CLOSED, APPEARS TO BE RESTING. BREATHING IS EVEN, UNLABORED. NO APPARENT SIGNS OF DISTRESS. CALL LIGHT IS IN REACH.
--- NOTE | 2020-09-15 03:20 | NUR ---
0200 PT LYING IN BED, EYES CLOSED, APPEARS TO BE RESTING. BREATHING IS EVEN, UNLABORED. NO APPARENT SIGNS OF DISTRESS. CALL LIGHT IS IN REACH.
--- NOTE | 2020-09-15 05:06 | NUR ---
PT LYING IN BED, EYES CLOSED, APPEARS TO BE RESTING. BREATHING IS EVEN, UNLABORED. NO APPARENT SIGNS OF DISTRESS. CALL LIGHT IS IN REACH.
--- NOTE | 2020-09-15 05:35 | NUR ---
PT IS AAO X 4, ON RA AT 94%. REPORTS A LITTLE SOB WITH EXERTION. COUGH, PRODUCTIVE, PT REPORTS SPUTUM IS CLEAR.
--- NOTE | 2020-09-15 05:53 | NUR ---
PT LYING IN BED, EYES CLOSED, APPEARS TO BE RESTING. BREATHING IS EVEN, UNLABORED. NO APPARENT SIGNS OF DISTRESS. CALL LIGHT IS IN REACH. NO OTHER CHANGES THIS SHIFT.
--- NOTE | 2020-09-15 11:17 | NUR ---
1050 NOTIFIED BY BOOKBINDING MACHINE OPERATOR THAT PT WAS REPORTING DIZZINESS WHILE SITTING ON TOILET. UPON ENTERING BATHROOM, PT SITTING ON TOILET, PALE, LETHARGIC, NOT ANSWERING QUESTIONS, PUPILS FIXED AND PINPOINT. PT BRADYCARDIC AT 48 BPM, SPO2 88% ON RA, UNABLE TO OBTAIN BP, RAPID RESPONSE INITIATED. PT ASSISTED TO W/C WITH 3 STAFF, THEN TO BED. BED TRENDELENBERGED, BP OBTAINED 94/68, P 64, SPO2 88% ON RA. DR. GARCIA ARRIVED AT BEDSIDE AND BOLUS ORDERED AND STARTED, BP 109/68, P 63, SPO2 96% ON 4L O2 THAT WAS PLACED BY RT. PT WAS NO LONGER PALE AND BECAME MORE ALERT 1120 PT'S SISTER CALLED AND UPDATE GIVEN AFTER VERBAL CONSENT OBTAINED FROM PT.
--- NOTE | 2020-09-15 12:09 | NUR ---
POST BOLUS BP WNL. PT REPORTS FEELING BETTER.
[2020-09-15 14:15] LABS: Hematocrit 34.5 % (33.0-51.0); Hemoglobin 11.6 g/dL (11.5-16.0); Mean Corpuscular HGB 29.9 pg (26.0-34.0); Mean Corpuscular HGB Conc 33.6 g/dL (31.5-36.5); Mean Corpuscular Volume 89 fL (80-100); Mean Platelet Volume 8.7 fL (9.1-12.4); Platelet Count 409 K/mm3 (150-400); RDW Coefficient Variation 13.1 % (11.7-14.2); RDW Standard Deviation 42.2 fL (35.1-46.3); Red Blood Cell Count 3.88 M/mm3 (3.80-5.20); White Blood Cell Count 10.86 K/mm3 (4.00-11.30)
[2020-09-15 14:50] LABS: Albumin, Blood 2.4 g/dL (3.4-5.0); Anion Gap 6 mmol/L (6-16); Blood Urea Nitrogen 12 mg/dL (8-24); Bun/Creatinine Ratio 18.5 (12.0-20.0); CO2, Blood 27 mmol/L (21-32); Calcium, Blood 8.3 mg/dL (8.5-10.1); Chloride, Blood 104 mmol/L (98-108); Creatinine, Blood 0.65 mg/dL (0.40-1.00); Glomerular Filtration Rate >60 (60-); Glucose, Blood 127 mg/dL (70-99); Phosphorus, Blood 3.1 mg/dL (2.5-4.9); Potassium, Blood 3.5 mmol/L (3.5-5.5); Sodium, Blood 137 mmol/L (136-145)
--- NOTE | 2020-09-15 17:16 | NUR ---
SHIFT SUMMARY. A&OX4, WAS INDEPENDENT TO BATHROOM TILL NEAR SYNCOPAL EPISODE IN BATHROOM, PT USES CALL LIGHT APPROPRIATELY FOR SBA TO BSC NOW. PT UP TO BSC 3 TIMES AFTER SYNCOPAL EPISODE THIS AM WITHOUT ISSUE, PT DID REPORT SLIGHT "LIGHT HEADEDNESS." PT DENIES PAIN SOB, N/V. CONTINUES WITH 1L O2 NC, LUNGS CLEAR. BP WNL THIS AFTERNOON. ZIO PATCH TAKEN TO HEART CENTER BY TANK CALIBRATOR TO BE EXPEDIATED FOR REVIEW. TELE NSR IN THE 'S. EKG COMPLETED. NO OTHER CHANGES OR CONCERNS.
--- NOTE | 2020-09-16 04:49 | NUR ---
KATHRYN SLEPT WELL OVERNIGHT, AND IS HOPING TO GET TO GO HOME AFTER FINAL REMDESIVIR INFUSION THIS MORNING. NO COMPLAINTS OF PAIN OR DISCOMFORT. MODERATE NON-PRODUCTIVE COUGH. SHE WAS OOB TO BSC WITH STANDBY SUPERVISION OF THIS RN WITHOUT DIFFICULTY. TELE, SHE HAS REMAINED IN A SINUS RHYTHM WITHOUT ECTOPY OVERNIGHT
[2020-09-16 06:16] LABS: Hematocrit 36.5 % (33.0-51.0); Hemoglobin 12.3 g/dL (11.5-16.0); Mean Corpuscular HGB 29.3 pg (26.0-34.0); Mean Corpuscular HGB Conc 33.7 g/dL (31.5-36.5); Mean Corpuscular Volume 87 fL (80-100); Mean Platelet Volume 8.7 fL (9.1-12.4); NRBC ABSOLUTE 0.02 K/mm3 (0.00-0.02); NRBC Auto 0.3 /100 WBC (0.0-0.2); Platelet Count 461 K/mm3 (150-400); RDW Coefficient Variation 13.1 % (11.7-14.2); RDW Standard Deviation 41.2 fL (35.1-46.3); White Blood Cell Count 7.93 K/mm3 (4.00-11.30)
[2020-09-16 06:44] LABS: Albumin, Blood 2.6 g/dL (3.4-5.0); Anion Gap 5 mmol/L (6-16); Blood Urea Nitrogen 11 mg/dL (8-24); Bun/Creatinine Ratio 18.2 (12.0-20.0); CO2, Blood 27 mmol/L (21-32); Calcium, Blood 8.7 mg/dL (8.5-10.1); Chloride, Blood 106 mmol/L (98-108); Glomerular Filtration Rate >60 (60-); Glucose, Blood 85 mg/dL (70-99); Phosphorus, Blood 4.2 mg/dL (2.5-4.9); Potassium, Blood 3.6 mmol/L (3.5-5.5); Sodium, Blood 138 mmol/L (136-145)
--- NOTE | 2020-09-16 15:30 | NUR ---
HAD PT AMBULATE AROUND IN ROOM FOR APPROX 200 FEET WHILE MONITERING SATS. NEVER DROPPED BELOW 93% ON ROOM AIR. NO RESP. DISTRESS NOTED DURING EPISODE. ZIO PATCH PLACED BY HEART CENTER.
--- NOTE | 2020-09-16 16:30 | NUR ---
DISCHARGE INSTRUCTIONS COMPLETED AND DISCUSSED WITH PT EXPRESSING UNDERSTANDING. SCRIPTS FAXED TO [facility] YESTERDAY AND SISTER HERE TO [facility] ADMISSIONS COUNSELOR COUGH MED SCRIPT TO FILL PRIOR TO PT LEAVING. TO [facility] VIA W/C.
== END 2020-09-16 16:24 | disposition home or self-care (01) | DRG 177 ==
LOC: ER 10:54 → MEDS 10:55 → ENPENDDIS 09-14 12:20 → MEDS 09-15 20:34
PROVIDERS: Internal Medicine; Student in an Organized Health Care Education/Training Program; ADMIT Internal Medicine
PROC: 8E0ZXY6 Isolation (ICD-10-PCS; principal; 2020-09-12)
PROC: XW033E5 Introduction of Remdesivir Anti-infective into Peripheral Vein, Percutaneous Approach, New Technology Group 5 (ICD-10-PCS; 2020-09-12)
PROC: 3E0DX3Z Introduction of Anti-inflammatory into Mouth and Pharynx, External Approach (ICD-10-PCS; 2020-09-12)
DX: U07.1 COVID-19 (principal); J12.82 Pneumonia due to coronavirus disease 2019; J96.01 Acute respiratory failure with hypoxia; I25.10 Atherosclerotic heart disease of native coronary artery without angina pectoris; E03.9 Hypothyroidism, unspecified; F41.9 Anxiety disorder, unspecified; I95.1 Orthostatic hypotension; Z86.73 Personal history of transient ischemic attack (TIA), and cerebral infarction without residual deficits; E78.00 Pure hypercholesterolemia, unspecified; Z95.5 Presence of coronary angioplasty implant and graft; I25.2 Old myocardial infarction; J45.909 Unspecified asthma, uncomplicated; Z90.710 Acquired absence of both cervix and uterus; Z87.891 Personal history of nicotine dependence; Z98.890 Other specified postprocedural states; H26.9 Unspecified cataract; Z79.82 Long term (current) use of aspirin; Z79.02 Long term (current) use of antithrombotics/antiplatelets; Z88.8 Allergy status to other drugs, medicaments and biological substances; Z88.1 Allergy status to other antibiotic agents; K64.9 Unspecified hemorrhoids; K57.90 Diverticulosis of intestine, part unspecified, without perforation or abscess without bleeding; Z79.899 Other long term (current) drug therapy; E87.6 Hypokalemia; E83.42 Hypomagnesemia; E83.51 Hypocalcemia; R19.7 Diarrhea, unspecified; Z86.010 Personal history of colon polyps; I10 Essential (primary) hypertension; E86.0 Dehydration; I08.1 Rheumatic disorders of both mitral and tricuspid valves; R11.2 Nausea with vomiting, unspecified
CPT/HCPCS: 36415; 36600; 71045; 71260; 80048; 80053; 80069; 82728; 82803; 83615; 83690; 83735; 84145; 84484; 85025; 85027; 85379; 85651; 86140; 86850; 86900; 86901; 93005; 93010; 93246; 94003; 94640; 94664; 94760; 96365-59; 96366-59; 96368; 96375-59; 99285-25; A9270; C1751; G0378; J1650; J1885; J2405; J3475; J3480; J7030; J7050; Q9967

== ENCOUNTER 2021-01-27 11:42 | Emergency (ER) | payer OTHER ==
[~2021-01-27] VITALS: Ht 167.6 cm; Wt 83.9 kg
[~2021-01-27 11:42] MED LIST changes: +ALBU90OI INH; +CODEINE-GUAIFE120 M1 PO; +DEXA6 PO; +DOCU100 PO; +RANOLAZINE ER500 M2 PO
== END 2021-01-27 13:26 | disposition home or self-care (01) ==
LOC: ER 11:42
DX: K13.0 Diseases of lips (principal); I10 Essential (primary) hypertension; I25.10 Atherosclerotic heart disease of native coronary artery without angina pectoris; E03.9 Hypothyroidism, unspecified; I25.2 Old myocardial infarction; Z86.73 Personal history of transient ischemic attack (TIA), and cerebral infarction without residual deficits; Z88.1 Allergy status to other antibiotic agents; Z88.8 Allergy status to other drugs, medicaments and biological substances; Z79.82 Long term (current) use of aspirin; Z79.899 Other long term (current) drug therapy